=== PATIENT | male | born 1965 | race African-American/Black ===

== ENCOUNTER 2018-09-22 08:49 | Inpatient (IN) | payer OTHER ==
[2018-09-22 09:27] VITALS: BMI 42.0
--- NOTE | 2018-09-22 09:56 | HP ---
CIWA Score Nausea/Vomitin Muscle Tremors: 2 Anxiety: 2 Agitation: 1-Slight > Activity Paroxysmal Sweats: 2 Orientation: 0-Oriented Tacttile Disturbances: 2-Mild Itch/Numbness/Burn Auditory Disturbances: 0-None Visual Disturbances: 0-None Headache: 2-Mild CIWA-Ar Total Score: 13 - Admission Criteria OASAS Guidelines: Admission for Medically Managed Detox: Requires at least one of the followin. CIWA greater than 12 2. Seizures within the past 24 hours 3. Delirium tremens within the past 24 hours 4. Hallucinations within the past 24 hours 5. Acute intervention needed for co occurring medical disorder 6. Acute intervention needed for co occurring psychiatric disorder 7. Severe withdrawal that cannot be handled at a lower level of care (continued vomiting, continued diarrhea, abnormal vital signs) requiring intravenous medication and/or fluids 8. Admission ROS [facility] - [facility] Chief Complaint: Withdrawal symptoms Allergies/Adverse Reactions: Allergies Allergy/AdvReac Type Severity Reaction Status Date / Time No Known Allergies Allergy Verified 09/22/18 09:32 History of Present Illness: 53 y.o. man with an extensive history of alcohol dependence is here seeking detox. He reports he previously completed detox at [facility] one year ago. Longest period of abstinence has been 2 years. This is his first admission to [facility]. Exam Limitations: No Limitations - Ebola screening Have you traveled outside of the country in the last 21 days: No (N) Have you had contact with anyone from an Ebola affected area: No Have you been sick,other than usual withdrawal symptoms: No Do you have a fever: No - Review of Systems Constitutional: Changes in sleep EENT: reports: No Symptoms Reported Respiratory: reports: Shortness of Breath Cardiac: reports: No Symptoms Reported GI: reports: No Symptoms Reported : reports: No Symptoms Reported Musculoskeletal: reports: No Symptoms Reported Integumentary: reports: No Symptoms Reported Neuro: reports: Headache, Numbness, Tingling, Tremors Endocrine: reports: No Symptoms Reported Hematology: reports: No Symptoms Reported Psychiatric: reports: Orientated x3 Other Systems: Reviewed and Negative Patient History - Patient Medical History Hx Anemia: No Hx Asthma: Yes (ON MDI) Hx Chronic Obstructive Pulmonary Disease (COPD): No Hx Cancer: No Hx Cardiac Disorders: No Hx Congestive Heart Failure: No Hx Hypertension: Yes (ON MEDICATION) Hx Hypercholesterolemia: No Hx Pacemaker: No HX Cerebrovascular Accident: No Hx Seizures: No Hx Dementia: No Hx Diabetes: No Hx Gastrointestinal Disorders: No Hx Liver Disease: No Hx Genitourinary Disorders: No Hx Sexually Transmitted Disorders: No Hx Renal Disease (ESRD): No Hx Thyroid Disease: No Hx Human Immunodeficiency Virus (HIV): No Hx Hepatitis C: No Hx Depression: No Hx Suicide Attempt: No Hx Bipolar Disorder: No Hx Schizophrenia: No - Patient Surgical History Past Surgical History: No Hx Neurologic Surgery: No Hx Cataract Extraction: No Hx Cardiac Surgery: No Hx Lung Surgery: No Hx Breast Surgery: No Hx Breast Biopsy: No Hx Abdominal Surgery: No Hx Appendectomy: No Hx Cholecystectomy: No Hx Genitourinary Surgery: No Hx Section: No Hx Orthopedic Surgery: No Anesthesia Reaction: No - PPD History Previous Implant?: Yes Documented Results: Negative w/o proof Implanted On Prior R Admission?: No PPD to be Administered?: Yes - Reproductive History Patient is a Female of Child Bearing Age (11 -55 yrs old): No - Smoking Cessation Smoking history: Never smoked Hx Chewing Tobacco Use: No - Substance & Tx. History Hx Alcohol Use: Yes Hx Substance Use: No Substance Use Type: Alcohol Hx Substance Use Treatment: Yes (Detox: 1 year ago at [facility] ) - Substances Abused Alcohol Route: Oral Frequency: Daily Amount used: 2 PINTS OF VODKA Age of first use: 16 Date of Last Use: 09/21/18 Family Disease History - Family Disease History Family Disease History: Diabetes: Grandparent, CA: Mother (Br Ca- ) Admission Physical Exam [facility] - Vital Signs Vital Signs: Vital Signs - 24 hr 09/22/18 09:23 Temperature 96.1 F L Pulse Rate 60 Respiratory 18 Rate Blood Pressure 157/87 - Physical General Appearance: Yes: Obese, Anxious HEENTM: Yes: Hearing grossly Normal, Normal ENT Inspection, Normocephalic, Normal Voice Respiratory: Yes: Chest Non-Tender, No Accessory Muscle Use, Wheezing Neck: Yes: No masses,lesions,Nodules, Trachea in good position Breast: Yes: Breast Exam Deferred Cardiology: Yes: Regular Rhythm, Regular Rate Abdominal: Yes: Normal Bowel Sounds, Non Tender, Flat Genitourinary: Yes: Other (No complaints reported) Back: Yes: Normal Inspection Musculoskeletal: Yes: full range of Motion, Gait Steady, Pelvis Stable Extremities: Yes: Normal Capillary Refill, Normal Inspection, Normal Range of Motion, Non-Tender 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: 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: 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 intact, Fully Oriented, Alert, Normal Mood/ Affect, Normal Response Integumentary: Yes: Normal Color, Dry, Warm Lymphatic: Yes: Within Normal Limits - Diagnostic (1) Alcohol dependence with uncomplicated withdrawal Current Visit: Yes Status: Chronic (2) Hypertension Current Visit: Yes Status: Chronic (3) Asthma Current Visit: Yes Status: Chronic (4) Obese Current Visit: Yes Status: Chronic Qualifiers: Body mass index: BMI 40.0-44.9 Cleared for Admission [facility] - Detox or Rehab [facility] Level of Care: Medically Managed Detox Regimen/Protocol: Librium [facility] Breath Alcohol Content Breath Alcohol Content: 0 Urine Drug Screen - Results Drug Screen Negative: No Urine Drug Screen Results: BZO-Benzodiazepines
[2018-09-22] MEDS ORDERED: P-EPHED 60MG/TRIPROLIDI 2.5MG TABLET PO PRN (10:03)
[2018-09-22] MEDS ORDERED: ACETAMINOPHEN 325 MG TABLET (FP) PO PRN (10:03)
[2018-09-22] MEDS ORDERED: LOPERAMIDE HCL 2 MG CAPSULE PO PRN (10:03)
[2018-09-22] MEDS ORDERED: MAGNESIUM HYDROX 2400MG/30ML ORAL SUSPENSION 30 ML CUP PO PRN (10:03)
[2018-09-22] MEDS ORDERED: MENTHOL/PHENOL 1 EACH UD MM PRN (10:03)
[2018-09-22] MEDS ORDERED: MAGNESIUM CITRATE 300 ML BOTTLE PO PRN (10:03)
[2018-09-22] MEDS ORDERED: IBUPROFEN 400 MG TABLET (FP) PO PRN (10:03)
[2018-09-22] MEDS ORDERED: MAG HYDROX/AL HYDROX/SIMETH 30 ML UNIT-DOSE CUP PO PRN (10:03)
[2018-09-22] MEDS ORDERED: guaiFENesin/D-METHORPHAN HB 10 ML UNIT-DOSE CUPS PO PRN (10:03)
[2018-09-22] MEDS ORDERED: chlordiazePOXIDE HCL 25 MG CAPSULE PO PRN (10:03)
[2018-09-22] MEDS ORDERED: hydrOXYzine PAMOATE 50 MG CAPSULE (FP) PO PRN (10:03)
[2018-09-22] MEDS ORDERED: ALBUTEROL SO4 8 GM HFA INHALER IH PRN (10:06)
[2018-09-22] MEDS: HYDROCHLOROTHIAZIDE 25 MG TABLET (FP) PO SCH (11:33)
[2018-09-22] MEDS: amLODIPine BESYLATE 10 MG TABLET (FP) PO SCH (11:33)
--- NOTE | 2018-09-22 12:18 | EKG ---
Test Reason : Blood Pressure : / mmHG Vent. Rate : 061 BPM Atrial Rate : 061 BPM P-R Int : 174 ms QRS Dur : 082 ms QT Int : 400 ms P-R-T Axes : 047 -04 002 degrees QTc Int : 402 ms NORMAL SINUS RHYTHM NORMAL ECG NO PREVIOUS ECGS AVAILABLE Confirmed by DEANNA AMEZCUA MD ([id number]) on 09/22/2018 12:18:00 PM Referred By: Confirmed By:DEANNA AMEZCUA MD
[2018-09-22] MEDS: chlordiazePOXIDE HCL 25 MG CAPSULE PO SCH ×2 (17:23→22:07)
[2018-09-22] MEDS ORDERED: MELATONIN 5 MG TABLETS PO PRN (22:00)
[2018-09-22] MEDS: THIAMINE HCL 100 MG TABLET (FP) PO SCH (22:07)
[2018-09-23] MEDS: chlordiazePOXIDE HCL 25 MG CAPSULE PO SCH ×4 (05:10→22:06)
--- NOTE | 2018-09-23 09:52 | PN ---
S CIWA - CIWA Score Nausea/Vomitin-Mild Nausea/No Vomiting Muscle Tremors: 3 Anxiety: 2 Agitation: 3 Paroxysmal Sweats: 1-Minimal Palms Moist Orientation: 1-Uncertain about Date Tacttile Disturbances: 0-None Auditory Disturbances: 0-None Visual Disturbances: 0-None Headache: 1-Very Mild CIWA-Ar Total Score: 12 [facility] Progress Note (SOAP) Subjective: tremor sweating restlessness Objective: 09/23/18 09:53 Vital Signs Temperature 97.2 F L 09/23/18 09:14 Pulse Rate 68 09/23/18 09:14 Respiratory Rate 18 09/23/18 09:14 Blood Pressure 133/83 09/23/18 09:14 O2 Sat by Pulse Oximetry (%) 09/23/18 09:54 lab pending Assessment: 09/23/18 09:54 withdrawal sx Plan: continue detox
[2018-09-23] MEDS: HYDROCHLOROTHIAZIDE 25 MG TABLET (FP) PO SCH (10:03)
[2018-09-23] MEDS: amLODIPine BESYLATE 10 MG TABLET (FP) PO SCH (10:03)
[2018-09-23] MEDS: PRENATAL VITAMINS W/ FOLIC ACID TABLET (FP) PO SCH (10:04)
[2018-09-23 10:55] LABS: HEMATOCRIT 41.5 % (35.4-49); HEMOGLOBIN 14.3 GM/dL (11.7-16.9); MCH 34.1 pg (25.7-33.7); MCHC 34.5 g/dl (32.0-35.9); MEAN CELL VOLUME 98.9 fl (80-96); MEAN PLT VOLUME 9.1 fl (7.5-11.1); PLATELET COUNT 237 K/MM3 (134-434); RBC 4.19 M/mm3 (4.00-5.60); RDW 13.9 % (11.9-15.9); WHITE BLOOD COUNT 4.5 K/mm3 (4.0-10.0)
[2018-09-23 11:28] LABS: ALBUMIN 3.6 g/dl (3.4-5.0); ALK PHOS 64 U/L (45-117); ANION GAP 11 MMOL/L (8-16); BILIRUBIN,TOTAL 0.5 mg/dL (0.2-1); BLOOD UREA NITROGEN 14 mg/dL (7-18); CALCIUM 8.8 mg/dL (8.5-10.1); CHLORIDE 103 mmol/L (98-107); CO2 25 mmol/L (21-32); GLUCOSE,RANDOM 87 mg/dL (74-106); SGOT/AST 18 U/L (15-37); SGPT/ALT 32 U/L (13-61); SODIUM 139 mmol/L (136-145)
[2018-09-23] MEDS: THIAMINE HCL 100 MG TABLET (FP) PO SCH (22:06)
[2018-09-24] MEDS: chlordiazePOXIDE HCL 25 MG CAPSULE PO SCH ×2 (05:12→10:02)
[2018-09-24] MEDS: amLODIPine BESYLATE 10 MG TABLET (FP) PO SCH (10:02)
[2018-09-24] MEDS: HYDROCHLOROTHIAZIDE 25 MG TABLET (FP) PO SCH (10:02)
[2018-09-24] MEDS: PRENATAL VITAMINS W/ FOLIC ACID TABLET (FP) PO SCH (10:02)
--- NOTE | 2018-09-24 10:28 | PN ---
[facility] CIWA - CIWA Score Nausea/Vomitin-No Nausea/No Vomiting Muscle Tremors: 3 Anxiety: 2 Agitation: 1-Slight > Activity Paroxysmal Sweats: 1-Minimal Palms Moist Orientation: 1-Uncertain about Date Tacttile Disturbances: 0-None Auditory Disturbances: 0-None Visual Disturbances: 0-None Headache: 2-Mild CIWA-Ar Total Score: 10 S Progress Note (SOAP) Subjective: tremor sweating anxiety restlessness Objective: 09/24/18 10:27 Vital Signs Temperature 97.1 F L 09/24/18 08:53 Pulse Rate 73 09/24/18 08:53 Respiratory Rate 18 09/24/18 08:53 Blood Pressure 127/80 09/24/18 08:53 O2 Sat by Pulse Oximetry (%) Laboratory Last Values WBC 4.5 K/mm3 (4.0-10.0) 09/23/18 07:00 RBC 4.19 M/mm3 (4.00-5.60) 09/23/18 07:00 Hgb 14.3 GM/dL (11.7-16.9) 09/23/18 07:00 Hct 41.5 % (35.4-49) 09/23/18 07:00 MCV 98.9 fl (80-96) H 09/23/18 07:00 MCH 34.1 pg (25.7-33.7) H 09/23/18 07:00 MCHC 34.5 g/dl (32.0-35.9) 09/23/18 07:00 RDW 13.9 % (11.9-15.9) 09/23/18 07:00 Plt Count 237 K/MM3 (134-434) 09/23/18 07:00 MPV 9.1 fl (7.5-11.1) 09/23/18 07:00 Sodium 139 mmol/L (136-145) 09/23/18 07:00 Potassium 4.0 mmol/L (3.5-5.1) 09/23/18 07:00 Chloride 103 mmol/L (98-107) 09/23/18 07:00 Carbon Dioxide 25 mmol/L (21-32) 09/23/18 07:00 Anion Gap 11 MMOL/L (8-16) 09/23/18 07:00 BUN 14 mg/dL (7-18) 09/23/18 07:00 Creatinine 1.0 mg/dL (0.55-1.3) 09/23/18 07:00 Creat Clearance w eGFR > 60 (>60) 09/23/18 07:00 Random Glucose 87 mg/dL (74-106) 09/23/18 07:00 Calcium 8.8 mg/dL (8.5-10.1) 09/23/18 07:00 Total Bilirubin 0.5 mg/dL (0.2-1) 09/23/18 07:00 AST 18 U/L (15-37) 09/23/18 07:00 ALT 32 U/L (13-61) 09/23/18 07:00 Alkaline Phosphatase 64 U/L (45-117) 09/23/18 07:00 Total Protein 7.0 g/dl (6.4-8.2) 09/23/18 07:00 Albumin 3.6 g/dl (3.4-5.0) 09/23/18 07:00 RPR Titer Nonreactive (NONREACTIVE) 09/23/18 07:00 Hep C Ab Diagnostic 0.2 s/co ratio (0.0-0.9) 09/23/18 07:00 HIV 1&2 Antibody Screen Negative 09/23/18 07:00 HIV P24 Antigen Negative 09/23/18 07:00 lab noted Assessment: 09/24/18 10:28 withdrawal sx Plan: continue detox
[2018-09-24] MEDS: chlordiazePOXIDE 5 MG CAPSULE PO SCH ×2 (17:13→22:10)
[2018-09-24] MEDS: THIAMINE HCL 100 MG TABLET (FP) PO SCH (22:10)
[2018-09-25] MEDS: chlordiazePOXIDE 5 MG CAPSULE PO SCH ×2 (05:16→10:00)
--- NOTE | 2018-09-25 08:40 | PN ---
S Progress Note (SOAP) Subjective: feeling better less tremor mild sweating tolerated food and fluid well discuss aftercare with staff Objective: 09/25/18 08:39 Vital Signs Temperature 96.5 F L 09/25/18 06:08 Pulse Rate 64 09/25/18 06:08 Respiratory Rate 20 09/25/18 06:08 Blood Pressure 105/69 09/25/18 06:08 O2 Sat by Pulse Oximetry (%) Laboratory Last Values WBC 4.5 K/mm3 (4.0-10.0) 09/23/18 07:00 RBC 4.19 M/mm3 (4.00-5.60) 09/23/18 07:00 Hgb 14.3 GM/dL (11.7-16.9) 09/23/18 07:00 Hct 41.5 % (35.4-49) 09/23/18 07:00 MCV 98.9 fl (80-96) H 09/23/18 07:00 MCH 34.1 pg (25.7-33.7) H 09/23/18 07:00 MCHC 34.5 g/dl (32.0-35.9) 09/23/18 07:00 RDW 13.9 % (11.9-15.9) 09/23/18 07:00 Plt Count 237 K/MM3 (134-434) 09/23/18 07:00 MPV 9.1 fl (7.5-11.1) 09/23/18 07:00 Sodium 139 mmol/L (136-145) 09/23/18 07:00 Potassium 4.0 mmol/L (3.5-5.1) 09/23/18 07:00 Chloride 103 mmol/L (98-107) 09/23/18 07:00 Carbon Dioxide 25 mmol/L (21-32) 09/23/18 07:00 Anion Gap 11 MMOL/L (8-16) 09/23/18 07:00 BUN 14 mg/dL (7-18) 09/23/18 07:00 Creatinine 1.0 mg/dL (0.55-1.3) 09/23/18 07:00 Creat Clearance w eGFR > 60 (>60) 09/23/18 07:00 Random Glucose 87 mg/dL (74-106) 09/23/18 07:00 Calcium 8.8 mg/dL (8.5-10.1) 09/23/18 07:00 Total Bilirubin 0.5 mg/dL (0.2-1) 09/23/18 07:00 AST 18 U/L (15-37) 09/23/18 07:00 ALT 32 U/L (13-61) 09/23/18 07:00 Alkaline Phosphatase 64 U/L (45-117) 09/23/18 07:00 Total Protein 7.0 g/dl (6.4-8.2) 09/23/18 07:00 Albumin 3.6 g/dl (3.4-5.0) 09/23/18 07:00 RPR Titer Nonreactive (NONREACTIVE) 09/23/18 07:00 Hep C Ab Diagnostic 0.2 s/co ratio (0.0-0.9) 09/23/18 07:00 HIV 1&2 Antibody Screen Negative 09/23/18 07:00 HIV P24 Antigen Negative 09/23/18 07:00 lab noted Assessment: 09/25/18 08:39 mild withdrawal sx Plan: continue detox
--- NOTE | 2018-09-25 09:47 | DS ---
[facility] Detox Discharge Summary Admission Date: 09/22/18 Discharge Date: 09/25/18 - History Present History: Alcohol Dependence Pertinent Past History: 53 years old male admitted on 09/22/18 for alcohol withdrawal stabilization feeling better today preferred to begin chemical rehab today alert no acute distress denies suicidal ideation - Physical Exam Results Vital Signs: Vital Signs Temperature 97.0 F L 09/25/18 09:06 Pulse Rate 75 09/25/18 09:06 Respiratory Rate 18 09/25/18 09:06 Blood Pressure 126/82 09/25/18 09:06 O2 Sat by Pulse Oximetry (%) Pertinent Admission Physical Exam Findings: alcohol withdrawal sx Laboratory Last Values WBC 4.5 K/mm3 (4.0-10.0) 09/23/18 07:00 RBC 4.19 M/mm3 (4.00-5.60) 09/23/18 07:00 Hgb 14.3 GM/dL (11.7-16.9) 09/23/18 07:00 Hct 41.5 % (35.4-49) 09/23/18 07:00 MCV 98.9 fl (80-96) H 09/23/18 07:00 MCH 34.1 pg (25.7-33.7) H 09/23/18 07:00 MCHC 34.5 g/dl (32.0-35.9) 09/23/18 07:00 RDW 13.9 % (11.9-15.9) 09/23/18 07:00 Plt Count 237 K/MM3 (134-434) 09/23/18 07:00 MPV 9.1 fl (7.5-11.1) 09/23/18 07:00 Sodium 139 mmol/L (136-145) 09/23/18 07:00 Potassium 4.0 mmol/L (3.5-5.1) 09/23/18 07:00 Chloride 103 mmol/L (98-107) 09/23/18 07:00 Carbon Dioxide 25 mmol/L (21-32) 09/23/18 07:00 Anion Gap 11 MMOL/L (8-16) 09/23/18 07:00 BUN 14 mg/dL (7-18) 09/23/18 07:00 Creatinine 1.0 mg/dL (0.55-1.3) 09/23/18 07:00 Creat Clearance w eGFR > 60 (>60) 09/23/18 07:00 Random Glucose 87 mg/dL (74-106) 09/23/18 07:00 Calcium 8.8 mg/dL (8.5-10.1) 09/23/18 07:00 Total Bilirubin 0.5 mg/dL (0.2-1) 09/23/18 07:00 AST 18 U/L (15-37) 09/23/18 07:00 ALT 32 U/L (13-61) 09/23/18 07:00 Alkaline Phosphatase 64 U/L (45-117) 09/23/18 07:00 Total Protein 7.0 g/dl (6.4-8.2) 09/23/18 07:00 Albumin 3.6 g/dl (3.4-5.0) 09/23/18 07:00 RPR Titer Nonreactive (NONREACTIVE) 09/23/18 07:00 Hep C Ab Diagnostic 0.2 s/co ratio (0.0-0.9) 09/23/18 07:00 HIV 1&2 Antibody Screen Negative 09/23/18 07:00 HIV P24 Antigen Negative 09/23/18 07:00 lab noted - Treatment Hospital Course: Detox Protocol Followed, Detoxed Safely, Responded well, Discharged Condition Good, Rehab Referral Accepted Patient has Accepted a Rehab Referral to: [facility] - Medication Discharge Medications: Ambulatory Orders Albuterol Sulfate Inhaler - [Ventolin HFA Inhaler -] 1 - 2 inh PO Q4H PRN #1 inhaler 09/25/18 Amlodipine Besylate [Norvasc -] 10 mg PO DAILY #14 tablet 09/25/18 Hydrochlorothiazide 25 mg PO DAILY #14 tablet 09/25/18 - Diagnosis (1) Alcohol dependence with uncomplicated withdrawal Current Visit: Yes Status: Acute (2) Asthma Current Visit: Yes Status: Chronic Qualifiers: Asthma severity: mild Asthma persistence: intermittent Asthma complication type: with status asthmaticus Qualified Code(s): J45.22 - Mild intermittent asthma with status asthmaticus (3) Hypertension Current Visit: Yes Status: Chronic Qualifiers: Hypertension type: essential hypertension Qualified Code(s): I10 - Essential (primary) hypertension - AMA Did Patient Leave Against Medical Advice: No
[2018-09-25] MEDS: PRENATAL VITAMINS W/ FOLIC ACID TABLET (FP) PO SCH (10:00)
[2018-09-25] MEDS: HYDROCHLOROTHIAZIDE 25 MG TABLET (FP) PO SCH (10:00)
[2018-09-25] MEDS: amLODIPine BESYLATE 10 MG TABLET (FP) PO SCH (10:00)
[2018-09-25 13:51] VITALS: BP 121/78; PULSE 80; TEMP 98.4
[2018-09-25] MEDS ORDERED: chlordiazePOXIDE HCL 10 MG CAPSULE PO SCH (17:00)
== END 2018-09-25 11:44 | disposition other institution (70) | DRG 775 ==
LOC: YASAS 08:49 → Y3N 10:08
PROVIDERS: ADMIT Neuromusculoskeletal Medicine & OMM; ATTEND Neuromusculoskeletal Medicine & OMM
PROC: HZ2ZZZZ Detoxification Services for Substance Abuse Treatment (ICD-10-PCS; principal; 2018-09-22)
DX: F10.230 Alcohol dependence with withdrawal, uncomplicated (principal); I10 Essential (primary) hypertension; J45.22 Mild intermittent asthma with status asthmaticus; E66.9 Obesity, unspecified; Z68.41 Body mass index [BMI] 40.0-44.9, adult
CPT/HCPCS: 36415; 80053; 85027; 86593; 86803; 87389; 93005; 93010

== ENCOUNTER 2018-09-25 11:54 | Inpatient (IN) | payer OTHER ==
--- NOTE | 2018-09-25 09:51 | HP ---
[facility] Rehab Assess/Revision - Admission History Admitted to Rehab from: [facility] Date of Admission to Rehab: 09/25/18 - Findings Detox History & Physical reviewed: Yes Concur with findings: Yes Comments/Additional Findings: transferred from detox to rehab admission as per protocol Inpatient Rehab Admission - Initial Determination Are CD services needed?: Yes Free of communicable disease: Yes Not in need of hospitalization: Yes - Rehab Admission Criteria Previous failed treatment: Yes Poor recovery environment: Yes Comorbidities: Yes Lacks judgement: No Patient is meeting Inpatient Rehab admission criteria:: Yes
[~2018-09-25 11:54] MED LIST: ACETAMINOPHEN 325 MG TABLET (FP) PO PRN; HYDROCHLOROTHIAZIDE 25 MG TABLET (FP) PO SCH; IBUPROFEN 400 MG TABLET (FP) PO PRN; LOPERAMIDE HCL 2 MG CAPSULE PO PRN; MAG HYDROX/AL HYDROX/SIMETH 30 ML UNIT-DOSE CUP PO PRN; MAGNESIUM CITRATE 300 ML BOTTLE PO PRN; MAGNESIUM HYDROX 2400MG/30ML ORAL SUSPENSION 30 ML CUP PO PRN; MENTHOL/PHENOL 1 EACH UD MM PRN; NICOTINE 14 MG/24 HOURS TOPICAL PATCH TD PRN; NICOTINE POLACRILEX 2 MG GUM BUC PRN; P-EPHED 60MG/TRIPROLIDI 2.5MG TABLET PO PRN; guaiFENesin/D-METHORPHAN HB 10 ML UNIT-DOSE CUPS PO PRN
[2018-09-25] MEDS ORDERED: amLODIPine BESYLATE 10 MG TABLET (FP) PO SCH (12:15)
[2018-09-25 12:46] VITALS: BMI 42.0
[2018-09-25] MEDS: PRENATAL VITAMINS W/ FOLIC ACID TABLET (FP) PO SCH (13:24)
[2018-09-25] MEDS: THIAMINE HCL 100 MG TABLET (FP) PO SCH (21:30)
[2018-09-25] MEDS ORDERED: MELATONIN 5 MG TABLETS PO PRN (22:00)
[2018-09-26] MEDS: PRENATAL VITAMINS W/ FOLIC ACID TABLET (FP) PO SCH (09:54)
[2018-09-26] MEDS: amLODIPine BESYLATE 10 MG TABLET (FP) PO SCH (09:54)
[2018-09-26] MEDS: HYDROCHLOROTHIAZIDE 25 MG TABLET (FP) PO SCH (09:54)
[2018-09-26] MEDS ORDERED: NICOTINE 14 MG/24 HOURS TOPICAL PATCH TD PRN (10:00)
[2018-09-26] MEDS: THIAMINE HCL 100 MG TABLET (FP) PO SCH (22:03)
[2018-09-27] MEDS: PRENATAL VITAMINS W/ FOLIC ACID TABLET (FP) PO SCH (09:59)
[2018-09-27] MEDS: amLODIPine BESYLATE 10 MG TABLET (FP) PO SCH (09:59)
[2018-09-27] MEDS: HYDROCHLOROTHIAZIDE 25 MG TABLET (FP) PO SCH (10:00)
[2018-09-27] MEDS: ALBUTEROL SO4 8 GM HFA INHALER IH PRN (10:01)
[2018-09-27] MEDS: THIAMINE HCL 100 MG TABLET (FP) PO SCH (21:56)
[2018-09-28] MEDS: PRENATAL VITAMINS W/ FOLIC ACID TABLET (FP) PO SCH (10:17)
[2018-09-28] MEDS: HYDROCHLOROTHIAZIDE 25 MG TABLET (FP) PO SCH (10:17)
[2018-09-28] MEDS: amLODIPine BESYLATE 10 MG TABLET (FP) PO SCH (10:17)
[2018-09-28] MEDS: THIAMINE HCL 100 MG TABLET (FP) PO SCH (22:14)
[2018-09-29] MEDS: PRENATAL VITAMINS W/ FOLIC ACID TABLET (FP) PO SCH (10:43)
[2018-09-29] MEDS: amLODIPine BESYLATE 10 MG TABLET (FP) PO SCH (10:43)
[2018-09-29] MEDS: HYDROCHLOROTHIAZIDE 25 MG TABLET (FP) PO SCH (10:43)
[2018-09-29] MEDS: ALBUTEROL SO4 8 GM HFA INHALER IH PRN (10:44)
[2018-09-29] MEDS: THIAMINE HCL 100 MG TABLET (FP) PO SCH (22:08)
[2018-09-30] MEDS: HYDROCHLOROTHIAZIDE 25 MG TABLET (FP) PO SCH (10:07)
[2018-09-30] MEDS: PRENATAL VITAMINS W/ FOLIC ACID TABLET (FP) PO SCH (10:07)
[2018-09-30] MEDS: amLODIPine BESYLATE 10 MG TABLET (FP) PO SCH (10:07)
[2018-09-30] MEDS: ALBUTEROL SO4 8 GM HFA INHALER IH PRN (18:49)
[2018-09-30] MEDS: THIAMINE HCL 100 MG TABLET (FP) PO SCH (22:17)
[2018-10-01] MEDS: PRENATAL VITAMINS W/ FOLIC ACID TABLET (FP) PO SCH (10:49)
[2018-10-01] MEDS: amLODIPine BESYLATE 10 MG TABLET (FP) PO SCH (10:49)
[2018-10-01] MEDS: HYDROCHLOROTHIAZIDE 25 MG TABLET (FP) PO SCH (10:49)
[2018-10-01] MEDS: THIAMINE HCL 100 MG TABLET (FP) PO SCH (22:07)
[2018-10-02 07:01] VITALS: TEMP 97.6
[2018-10-02] MEDS: HYDROCHLOROTHIAZIDE 25 MG TABLET (FP) PO SCH (10:18)
[2018-10-02] MEDS: amLODIPine BESYLATE 10 MG TABLET (FP) PO SCH (10:18)
[2018-10-02] MEDS: PRENATAL VITAMINS W/ FOLIC ACID TABLET (FP) PO SCH (10:18)
[2018-10-02] MEDS: ALBUTEROL SO4 8 GM HFA INHALER IH PRN (10:19)
[2018-10-02] MEDS: THIAMINE HCL 100 MG TABLET (FP) PO SCH (22:04)
[2018-10-03] MEDS: amLODIPine BESYLATE 10 MG TABLET (FP) PO SCH (10:28)
[2018-10-03] MEDS: HYDROCHLOROTHIAZIDE 25 MG TABLET (FP) PO SCH (10:28)
[2018-10-03] MEDS: PRENATAL VITAMINS W/ FOLIC ACID TABLET (FP) PO SCH (10:28)
--- NOTE | 2018-10-03 11:31 | PN ---
[facility] Progress Note Note: PATIENT REQUESTED TO BE DISCHARGED FROM REHAB TODAY. PATIENT STATES HE HAS TO FOLLOW UP WITH VASCULAR DOCTOR TODAY AND CANNOT RESCHEDULE APPOINTMENT. PATIENT STATES HE FEELS FINE AND DENIES SI/HI. PATIENT IS MEDICALLY STABLE AT THIS TIME HOWEVER, HE WAS ENCOURAGED TO STAY IN REHAB FOR HIS SOBRIETY AND OFFERED ASSISTANCE IN RESCHEDULING APPOINTMENT. PATIENT REFUSED TO RESCHEDULE APPOINTMENT AND REQUESTED TO CONTINUE TO WITH D/C PROCESS. PATIENT TO FOLLOW UP WITH [facility] AND ENCOURAGED TO FOLLOW UP WITH PCP WITHIN ONE WEEK OF DISCHARGE TO CONTINUE MEDICAL TREATMENT. PATIENT STATES ALL REHAB GOALS WERE ACHIEVED. Vital Signs Temperature 97.6 F 10/03/18 06:49 Pulse Rate 68 10/03/18 06:49 Respiratory Rate 18 10/03/18 06:49 Blood Pressure 126/78 10/03/18 06:49 O2 Sat by Pulse Oximetry (%)
[2018-10-03 11:44] VITALS: BP 113/80; PULSE 84
== END 2018-10-03 12:00 | disposition home or self-care (01) | DRG 772 ==
LOC: YASAS 11:54 → Y3W 11:55
PROVIDERS: ADMIT Psychiatry & Neurology Psychiatry; ATTEND Psychiatry & Neurology Psychiatry
PROC: HZ42ZZZ Group Counseling for Substance Abuse Treatment, Cognitive-Behavioral (ICD-10-PCS; principal; 2018-09-25)
DX: F10.20 Alcohol dependence, uncomplicated (principal); I10 Essential (primary) hypertension; J45.909 Unspecified asthma, uncomplicated; E66.9 Obesity, unspecified; Z68.41 Body mass index [BMI] 40.0-44.9, adult

== ENCOUNTER 2019-07-21 16:32 | Inpatient (IN) | payer OTHER ==
[2019-07-21 20:22] VITALS: BMI 41.0
[2019-07-21] MEDS ORDERED: MELATONIN 5 MG TABLETS PO PRN (22:00)
--- NOTE | 2019-07-21 23:04 | HP ---
CIWA Score - Admission Criteria OASAS Guidelines: Admission for Medically Managed Detox: Requires at least one of the followin. CIWA greater than 12 2. Seizures within the past 24 hours 3. Delirium tremens within the past 24 hours 4. Hallucinations within the past 24 hours 5. Acute intervention needed for co occurring medical disorder 6. Acute intervention needed for co occurring psychiatric disorder 7. Severe withdrawal that cannot be handled at a lower level of care (continued vomiting, continued diarrhea, abnormal vital signs) requiring intravenous medication and/or fluids 8. Admitting History and Physical - Smoking History Smoking history: Never smoked Have you smoked in the past 12 months: No - Alcohol/Substance Use Hx Alcohol Use: Yes Admission ROS S - HPI Chief Complaint: Seeking admission to Rehab. for Alcohol dependence Allergies/Adverse Reactions: Allergies Allergy/AdvReac Type Severity Reaction Status Date / Time No Known Allergies Allergy Verified 07/21/19 20:17 History of Present Illness: 53 year old male with a long history of alcohol dependence is seeking admission to Rehab. Patient reports detox at [facility]. He has medical history of hypertension and asthma. He denies Suicidal ideation at this time Exam Limitations: No Limitations - Ebola screening Have you traveled outside of the country in the last 21 days: No (N) Have you had contact with anyone from an Ebola affected area: No Do you have a fever: No - Review of Systems Constitutional: No Symptoms Reported EENT: reports: No Symptoms Reported Respiratory: reports: No Symptoms reported Cardiac: reports: No Symptoms Reported GI: reports: No Symptoms Reported : reports: No Symptoms Reported Musculoskeletal: reports: No Symptoms Reported Integumentary: reports: No Symptoms Reported Neuro: reports: No Symptoms reported Endocrine: reports: No Symptoms Reported Psychiatric: reports: No Sypmtoms Reported, Mood/Affect Appropiate, Orientated x3 Other Systems: Reviewed and Negative Patient History - Patient Medical History Hx Anemia: No Hx Asthma: Yes Hx Chronic Obstructive Pulmonary Disease (COPD): No Hx Cancer: No Hx Cardiac Disorders: No Hx Congestive Heart Failure: No Hx Hypertension: Yes Hx Hypercholesterolemia: No Hx Pacemaker: No HX Cerebrovascular Accident: No Hx Seizures: No Hx Dementia: No Hx Diabetes: No Hx Gastrointestinal Disorders: No Hx Liver Disease: No Hx Genitourinary Disorders: No Hx Sexually Transmitted Disorders: No Hx Renal Disease (ESRD): No Hx Thyroid Disease: No Hx Human Immunodeficiency Virus (HIV): No Hx Hepatitis C: No Hx Depression: No Hx Suicide Attempt: No Hx Bipolar Disorder: No Hx Schizophrenia: No - Patient Surgical History Past Surgical History: No Hx Neurologic Surgery: No Hx Cataract Extraction: No Hx Cardiac Surgery: No Hx Lung Surgery: No Hx Abdominal Surgery: No Hx Appendectomy: No Hx Cholecystectomy: No Hx Genitourinary Surgery: No Hx Orthopedic Surgery: No Anesthesia Reaction: No - PPD History Previous Implant?: Yes Documented Results: Negative w/o proof Implanted On Prior [facility] Admission?: No Date: 09/24/18 PPD to be Administered?: No - Smoking Cessation Smoking history: Never smoked Have you smoked in the past 12 months: No Hx Chewing Tobacco Use: No Initiated information on smoking cessation: No - Substance & Tx. History Hx Alcohol Use: Yes Hx Substance Use: Yes Substance Use Type: Alcohol - Substances abused Alcohol Substance route: Oral Frequency: Daily Amount used: 2 pints of vodka Age of first use: 16 Date of last use: 07/17/19 Admission Physical Exam [facility] - Vital Signs Vital Signs: Vital Signs - 24 hr 07/21/19 20:19 Temperature 97.4 F L Pulse Rate 82 Respiratory 18 Rate Blood Pressure 152/80 - Physical General Appearance: Yes: Within Normal Limits HEENTM: Yes: Within Normal Limits Respiratory: Yes: Within Normal Limits, Lungs Clear, Normal Breath Sounds Neck: Yes: Within Normal Limits Breast: Yes: Breast Exam Deferred Cardiology: Yes: Within Normal Limits Abdominal: Yes: Within Normal Limits Genitourinary: Yes: Within Normal Limits Back: Yes: Within Normal Limits Musculoskeletal: Yes: Within Normal Limits Extremities: Yes: Within Normal Limits 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: Yes: Within Normal Limits, Motor Strength 5/5 Integumentary: Yes: Within Normal Limits Cleared for Admission [facility] - Detox or Rehab [facility] Level of Care: Observation Bed Claeared for Rehab Admission: Yes Breathalyzer - Breathalyzer Breathalyzer: 0 Urine Drug Screen - Test Device Lot number: [id number] Expiration date: 03/31/21 - Control Is test valid?: Yes - Results Drug screen NEGATIVE: No Urine drug screen results: BZO-Benzodiazepines Inpatient Rehab Admission - Rehab Decision to Admit Inpatient rehab admission?: Yes - Initial Determination Are CD services needed?: No Free of communicable disease: Yes Not in need of hospitalization: Yes - Rehab Admission Criteria Previous failed treatment: Yes Poor recovery environment: Yes Comorbidities: Yes Lacks judgement: No Patient is meeting Inpatient Rehab admission criteria:: Yes
[2019-07-21] MEDS ORDERED: P-EPHED 60MG/TRIPROLIDI 2.5MG TABLET PO PRN (23:16)
[2019-07-21] MEDS ORDERED: ACETAMINOPHEN 325 MG TABLET (FP) PO PRN (23:16)
[2019-07-21] MEDS ORDERED: IBUPROFEN 400 MG TABLET (FP) PO PRN (23:16)
[2019-07-21] MEDS ORDERED: MENTHOL/PHENOL 1 EACH UD MM PRN (23:16)
[2019-07-21] MEDS ORDERED: MAG HYDROX/AL HYDROX/SIMETH 30 ML UNIT-DOSE CUP PO PRN (23:16)
[2019-07-21] MEDS ORDERED: LOPERAMIDE HCL 2 MG CAPSULE PO PRN (23:16)
[2019-07-21] MEDS ORDERED: guaiFENesin 200 MG/10 ML 10 ML UNIT-DOSE CUPS PO PRN (23:16)
[2019-07-21] MEDS ORDERED: MAGNESIUM CITRATE 300 ML BOTTLE PO PRN (23:16)
[2019-07-21] MEDS ORDERED: MAGNESIUM HYDROX 2400MG/30ML ORAL SUSPENSION 30 ML CUP PO PRN (23:16)
[2019-07-22] MEDS: HYDROCHLOROTHIAZIDE 25 MG TABLET (FP) PO SCH (10:33)
[2019-07-22] MEDS: PRENATAL VITAMINS W/ FOLIC ACID TABLET (FP) PO SCH (10:33)
[2019-07-22] MEDS: amLODIPine BESYLATE 10 MG TABLET (FP) PO SCH (10:33)
[2019-07-22] MEDS: ALBUTEROL SO4 8 GM HFA INHALER IH PRN (10:34)
--- NOTE | 2019-07-22 11:05 | PN ---
[facility] Progress Note Note: Pt is a 53 y/o male with a hx of MASOOD admitted to rehab from [facility]. C/o dry itchy skin on neck and chest under the breast. Vital Signs - 24 hr 07/21/19 07/22/19 07/22/19: 00:30 03:30 Temperature 97.4 F L Pulse Rate 82 Respiratory 18 18 18 Rate Blood Pressure 152/80 07/22/19 07/22/19 06:38 10:00 Temperature 97.2 F L Pulse Rate 71 75 Respiratory 18 Rate Blood Pressure 143/83 144/85 Exam: Skin- neck with dry, velvety skin. Chest-deferred. A/P Eczema Hydrocortisone cream apply to affected areas as directed.
[2019-07-22 11:58] LABS: HEMATOCRIT 44.4 % (35.4-49); MCHC 33.8 g/dl (32.0-35.9); MEAN CELL VOLUME 97.5 fl (80-96); MEAN PLT VOLUME 9.4 fl (7.5-11.1); PLATELET COUNT 266 K/MM3 (134-434); RBC 4.55 M/mm3 (4.00-5.60); RDW 14.6 % (11.9-15.9); WHITE BLOOD COUNT 4.1 K/mm3 (4.0-10.0)
[2019-07-22 12:14] LABS: ALBUMIN 3.9 g/dl (3.4-5.0); BILIRUBIN,TOTAL 0.2 mg/dL (0.2-1); BLOOD UREA NITROGEN 22.2 mg/dL (7-18); CALCIUM 9.1 mg/dL (8.5-10.1); CREATININE 1.1 mg/dL (0.55-1.3); POTASSIUM 4.2 mmol/L (3.5-5.1); TOT PROT 7.5 g/dl (6.4-8.2)
[2019-07-22 14:45] LABS: URINE APPEARANCE CLOUDY; URINE BILIRUBIN NEGATIVE (NEGATIVE); URINE COLOR YELLOW; URINE GLUCOSE (UA) NEGATIVE (NEGATIVE); URINE KETONE NEGATIVE (NEGATIVE); URINE LEUK ESTERASE NEGATIVE (NEGATIVE); URINE NITRITE NEGATIVE (NEGATIVE); URINE PROTEIN NEGATIVE (NEGATIVE); URINE UROBILINOGEN 0.2 mg/dL (0.2-1.0)
[2019-07-22] MEDS: THIAMINE HCL 100 MG TABLET (FP) PO SCH (21:26)
[2019-07-23] MEDS: amLODIPine BESYLATE 10 MG TABLET (FP) PO SCH (10:38)
[2019-07-23] MEDS: PRENATAL VITAMINS W/ FOLIC ACID TABLET (FP) PO SCH (10:38)
[2019-07-23] MEDS: HYDROCHLOROTHIAZIDE 25 MG TABLET (FP) PO SCH (10:38)
[2019-07-23] MEDS: HYDROCORTISONE 1% TOPICAL CREAM 30 GM TUBE TP SCH ×2 (13:06→21:15)
[2019-07-23] MEDS: THIAMINE HCL 100 MG TABLET (FP) PO SCH (21:14)
[2019-07-24] MEDS: PRENATAL VITAMINS W/ FOLIC ACID TABLET (FP) PO SCH (10:22)
[2019-07-24] MEDS: HYDROCHLOROTHIAZIDE 25 MG TABLET (FP) PO SCH (10:22)
[2019-07-24] MEDS: amLODIPine BESYLATE 10 MG TABLET (FP) PO SCH (10:22)
[2019-07-24] MEDS: HYDROCORTISONE 1% TOPICAL CREAM 30 GM TUBE TP SCH ×2 (10:24→21:35)
[2019-07-24] MEDS: THIAMINE HCL 100 MG TABLET (FP) PO SCH (21:35)
[2019-07-25] MEDS: amLODIPine BESYLATE 10 MG TABLET (FP) PO SCH (09:51)
[2019-07-25] MEDS: PRENATAL VITAMINS W/ FOLIC ACID TABLET (FP) PO SCH (09:51)
[2019-07-25] MEDS: HYDROCHLOROTHIAZIDE 25 MG TABLET (FP) PO SCH (09:51)
[2019-07-25] MEDS: ALBUTEROL SO4 8 GM HFA INHALER IH PRN (09:52)
[2019-07-25] MEDS: HYDROCORTISONE 1% TOPICAL CREAM 30 GM TUBE TP SCH ×2 (09:53→21:10)
[2019-07-25] MEDS: THIAMINE HCL 100 MG TABLET (FP) PO SCH (21:10)
[2019-07-26] MEDS: HYDROCHLOROTHIAZIDE 25 MG TABLET (FP) PO SCH (10:28)
[2019-07-26] MEDS: HYDROCORTISONE 1% TOPICAL CREAM 30 GM TUBE TP SCH ×2 (10:28→21:18)
[2019-07-26] MEDS: amLODIPine BESYLATE 10 MG TABLET (FP) PO SCH (10:28)
[2019-07-26] MEDS: PRENATAL VITAMINS W/ FOLIC ACID TABLET (FP) PO SCH (10:28)
[2019-07-26] MEDS: THIAMINE HCL 100 MG TABLET (FP) PO SCH (21:18)
[2019-07-27] MEDS: HYDROCORTISONE 1% TOPICAL CREAM 30 GM TUBE TP SCH ×2 (10:49→21:59)
[2019-07-27] MEDS: PRENATAL VITAMINS W/ FOLIC ACID TABLET (FP) PO SCH (10:49)
[2019-07-27] MEDS: amLODIPine BESYLATE 10 MG TABLET (FP) PO SCH (10:49)
[2019-07-27] MEDS: HYDROCHLOROTHIAZIDE 25 MG TABLET (FP) PO SCH (10:49)
[2019-07-27] MEDS: THIAMINE HCL 100 MG TABLET (FP) PO SCH (21:59)
[2019-07-28] MEDS: amLODIPine BESYLATE 10 MG TABLET (FP) PO SCH (11:38)
[2019-07-28] MEDS: HYDROCHLOROTHIAZIDE 25 MG TABLET (FP) PO SCH (11:38)
[2019-07-28] MEDS: PRENATAL VITAMINS W/ FOLIC ACID TABLET (FP) PO SCH (11:38)
[2019-07-28] MEDS: HYDROCORTISONE 1% TOPICAL CREAM 30 GM TUBE TP SCH ×2 (11:39→22:07)
[2019-07-28] MEDS: ALBUTEROL SO4 8 GM HFA INHALER IH PRN (11:39)
[2019-07-28] MEDS: THIAMINE HCL 100 MG TABLET (FP) PO SCH (22:07)
[2019-07-29] MEDS: HYDROCORTISONE 1% TOPICAL CREAM 30 GM TUBE TP SCH ×2 (10:57→22:06)
[2019-07-29] MEDS: PRENATAL VITAMINS W/ FOLIC ACID TABLET (FP) PO SCH (10:57)
[2019-07-29] MEDS: amLODIPine BESYLATE 10 MG TABLET (FP) PO SCH (10:57)
[2019-07-29] MEDS: HYDROCHLOROTHIAZIDE 25 MG TABLET (FP) PO SCH (10:57)
[2019-07-29] MEDS: ALBUTEROL SO4 8 GM HFA INHALER IH PRN (10:59)
[2019-07-29] MEDS: THIAMINE HCL 100 MG TABLET (FP) PO SCH (22:06)
[2019-07-30] MEDS: HYDROCORTISONE 1% TOPICAL CREAM 30 GM TUBE TP SCH (10:04)
[2019-07-30] MEDS: HYDROCHLOROTHIAZIDE 25 MG TABLET (FP) PO SCH (10:04)
[2019-07-30] MEDS: amLODIPine BESYLATE 10 MG TABLET (FP) PO SCH (10:04)
[2019-07-30] MEDS: PRENATAL VITAMINS W/ FOLIC ACID TABLET (FP) PO SCH (10:04)
[2019-07-30] MEDS: THIAMINE HCL 100 MG TABLET (FP) PO SCH (21:49)
[2019-07-31] MEDS: PRENATAL VITAMINS W/ FOLIC ACID TABLET (FP) PO SCH (10:38)
[2019-07-31] MEDS: HYDROCHLOROTHIAZIDE 25 MG TABLET (FP) PO SCH (10:38)
[2019-07-31] MEDS: amLODIPine BESYLATE 10 MG TABLET (FP) PO SCH (10:38)
[2019-07-31] MEDS: ALBUTEROL SO4 8 GM HFA INHALER IH PRN (10:40)
[2019-07-31] MEDS: THIAMINE HCL 100 MG TABLET (FP) PO SCH (21:57)
[2019-08-01 07:07] VITALS: TEMP 97.9
[2019-08-01 09:13] VITALS: BP 124/70; PULSE 67
--- NOTE | 2019-08-01 09:43 | DS ---
[facility] Rehab Discharge Summary - [facility] Rehab Discharge Summary Admission Date: 07/21/19 Discharge Date: 08/01/19 - History Present History: Alcohol dependence Pertinent Past History: Chronic hypertension, obesity asthma and alcoholism - Discharge Physical Exam Vital Signs: Vital Signs Temperature 97.9 F 08/01/19 07:06 Pulse Rate 67 08/01/19 09:13 Respiratory Rate 18 08/01/19 07:06 Blood Pressure 124/70 08/01/19 09:13 O2 Sat by Pulse Oximetry (%) Pertinent Admission Physical Exam Findings: Laboratory Last Values WBC 4.1 K/mm3 (4.0-10.0) 07/22/19 08:10 RBC 4.55 M/mm3 (4.00-5.60) 07/22/19 08:10 Hgb 15.0 GM/dL (11.7-16.9) 07/22/19 08:10 Hct 44.4 % (35.4-49) 07/22/19 08:10 MCV 97.5 fl (80-96) H 07/22/19 08:10 MCH 33.0 pg (25.7-33.7) 07/22/19 08:10 MCHC 33.8 g/dl (32.0-35.9) 07/22/19 08:10 RDW 14.6 % (11.9-15.9) 07/22/19 08:10 Plt Count 266 K/MM3 (134-434) 07/22/19 08:10 MPV 9.4 fl (7.5-11.1) 07/22/19 08:10 Sodium 137 mmol/L (136-145) 07/22/19 08:10 Potassium 4.2 mmol/L (3.5-5.1) 07/22/19 08:10 Chloride 103 mmol/L (98-107) 07/22/19 08:10 Carbon Dioxide 24 mmol/L (21-32) 07/22/19 08:10 Anion Gap 10 MMOL/L (8-16) 07/22/19 08:10 BUN 22.2 mg/dL (7-18) H 07/22/19 08:10 Creatinine 1.1 mg/dL (0.55-1.3) 07/22/19 08:10 Est GFR (CKD-EPI)AfAm 87.74 07/22/19 08:10 Est GFR (CKD-EPI)NonAf 75.70 07/22/19 08:10 POC Glucometer 101 UNITS (80-120) 07/26/19 06:47 Random Glucose 149 mg/dL (74-106) H 07/22/19 08:10 Calcium 9.1 mg/dL (8.5-10.1) 07/22/19 08:10 Total Bilirubin 0.2 mg/dL (0.2-1) 07/22/19 08:10 AST 27 U/L (15-37) 07/22/19 08:10 ALT 47 U/L (13-61) 07/22/19 08:10 Alkaline Phosphatase 66 U/L (45-117) 07/22/19 08:10 Total Protein 7.5 g/dl (6.4-8.2) 07/22/19 08:10 Albumin 3.9 g/dl (3.4-5.0) 07/22/19 08:10 Urine Color Yellow 07/21/19 10:30 Urine Appearance Cloudy 07/21/19 10:30 Urine pH 5.0 (5.0-8.0) 07/21/19 10:30 Ur Specific Burns 1.026 (1.010-1.035) 07/21/19 10:30 Urine Protein Negative (NEGATIVE) 07/21/19 10:30 Urine Glucose (UA) Negative (NEGATIVE) 07/21/19 10:30 Urine Ketones Negative (NEGATIVE) 07/21/19 10:30 Urine Blood Negative (NEGATIVE) 07/21/19 10:30 Urine Nitrite Negative (NEGATIVE) 07/21/19 10:30 Urine Bilirubin Negative (NEGATIVE) 07/21/19 10:30 Urine Urobilinogen 0.2 mg/dL (0.2-1.0) 07/21/19 10:30 Ur Leukocyte Esterase Negative (NEGATIVE) 07/21/19 10:30 RPR Titer Nonreactive (NONREACTIVE) 07/22/19 08:10 Labs noted - Treatment Discharge Condition: Discharge condition good Hospital Course: Admitted to [facility] outpatient program - Medication Discharge Medications: Ambulatory Orders Albuterol Sulfate Inhaler - [Ventolin HFA Inhaler -] 1 - 2 inh PO Q4H PRN #1 inhaler 09/25/18 Amlodipine Besylate [Norvasc -] 10 mg PO DAILY #14 tablet 09/25/18 Hydrochlorothiazide 25 mg PO DAILY #14 tablet 09/25/18 - Medication-Assisted Treatment (MAT) Medication-Assisted Treatment (MAT): No - Discharge Instructions Diet, activity, other medical instructions: Diet: No added salt Activity: No restrictions Other medical instructions:Medication adherence - Diagnosis (1) Alcohol dependence with uncomplicated withdrawal Current Visit: No Status: Chronic (2) Asthma Current Visit: No Status: Chronic Qualifiers: Asthma severity: mild Asthma persistence: intermittent Asthma complication type: with status asthmaticus Qualified Code(s): J45.22 - Mild intermittent asthma with status asthmaticus (3) Hypertension Current Visit: No Status: Chronic Qualifiers: Hypertension type: essential hypertension Qualified Code(s): I10 - Essential (primary) hypertension (4) Obese Current Visit: No Status: Chronic Qualifiers: Body mass index: BMI 40.0-44.9 - Follow-up Referral Minutes to complete discharge: 30 (Admitted to [facility]) - AMA Did Patient Leave Against Medical Advice: No Additional Comments: Patient requested discharge today instead of 08/03 following 11 days in rehab.
[2019-08-01] MEDS: PRENATAL VITAMINS W/ FOLIC ACID TABLET (FP) PO SCH (10:13)
[2019-08-01] MEDS: HYDROCHLOROTHIAZIDE 25 MG TABLET (FP) PO SCH (10:13)
[2019-08-01] MEDS: amLODIPine BESYLATE 10 MG TABLET (FP) PO SCH (10:13)
[2019-08-01] MEDS: ALBUTEROL SO4 8 GM HFA INHALER IH PRN (10:14)
== END 2019-08-01 10:30 | disposition home or self-care (01) | DRG 199 ==
LOC: YASAS 16:32 → Y5N 23:10
PROVIDERS: ADMIT Neuromusculoskeletal Medicine & OMM; ATTEND Neuromusculoskeletal Medicine & OMM
PROC: HZ42ZZZ Group Counseling for Substance Abuse Treatment, Cognitive-Behavioral (ICD-10-PCS; principal; 2019-07-21)
DX: I10 Essential (primary) hypertension (principal); J45.909 Unspecified asthma, uncomplicated; L30.9 Dermatitis, unspecified; E66.01 Morbid (severe) obesity due to excess calories; Z68.41 Body mass index [BMI] 40.0-44.9, adult
CPT/HCPCS: 36415; 80053; 81003; 82962; 85027; 86593

== ENCOUNTER 2020-04-21 13:03 | Inpatient (IN) | payer OTHER ==
--- NOTE | 2020-04-21 12:53 | BHS.RME ---
Substance Use & Tx History - Substance Use History Alcohol Substance amount: 2pints vodka + beers Frequency of use: Daily Substance route: Oral Date of Last Use: 04/20/20 (5am) - Last Treatment Date of last treatment: 2018 Treatment type: Substance Use Disorder (MASOOD) Where was last treatment: Detox Physical/Psych/Mental Status - Behavior General Behavior: Increased activity (restlessness, agitation) Eye Contact: Normal - Cooperativeness Cooperativeness: Cooperative - Thinking Thought Processes: Tight, Logical, Goal Directed Thought content: Future oriented - Physical Health Problems Is patient presently having any pain?: No Does patient presently have any injuries (include location): No Does patient currently have a fever: No Is patient : No CIWA Nausea/Vomitin Muscle Tremors: 3 Anxiety: 3 Agitation: 3 Paroxysmal Sweats: No Perspiration Orientation: 0-Oriented Tacttile Disturbances: 2-Mild Itch/Numbness/Burn Auditory Disturbances: 0-None Visual Disturbances: 0-None Headache: 0-None Present CIWA-Ar Total Score: 14
--- NOTE | 2020-04-21 13:32 | HP ---
CIWA Score Nausea/Vomitin Muscle Tremors: 3 Anxiety: 3 Agitation: 3 Paroxysmal Sweats: No Perspiration Orientation: 0-Oriented Tacttile Disturbances: 2-Mild Itch/Numbness/Burn Auditory Disturbances: 0-None Visual Disturbances: 0-None Headache: 0-None Present CIWA-Ar Total Score: 14 - Admission Criteria OASAS Guidelines: Admission for Medically Managed Detox: Requires at least one of the followin. CIWA greater than 12 2. Seizures within the past 24 hours 3. Delirium tremens within the past 24 hours 4. Hallucinations within the past 24 hours 5. Acute intervention needed for co occurring medical disorder 6. Acute intervention needed for co occurring psychiatric disorder 7. Severe withdrawal that cannot be handled at a lower level of care (continued vomiting, continued diarrhea, abnormal vital signs) requiring intravenous medication and/or fluids 8. Admitting History and Physical - Admission Chief Complaint: " i want to do it right this time. I have to stop drinking." History of Present Illness: 54 year old male with history of alcohol dependence with withdrawal seeking detox. He was here in 2019 and completed rehab but then relapsed the following year. 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 PIO=0 CIWA=14 He meets criteria for detox as he is at high risk of relapse. His consumption of alcohol has actually increased and he has multiple medical co-morbidities History Source: Patient Limitations to Obtaining History: No Limitations - Past Medical History Cardiovascular: Yes: HTN Pulmonary: Yes: Asthma - Past Surgical History Past Surgical History: Yes: None - Smoking History Smoking history: Never smoked Have you smoked in the past 12 months: No - Alcohol/Substance Use Hx Alcohol Use: Yes - Social History Usual Living Arrangement: Yes: Other Do you think of yourself as: Straight/Heterosexual ADL: Independent Occupation: [employer] History of Recent Travel: No Admission ROS S - HPI Allergies/Adverse Reactions: Allergies Allergy/AdvReac Type Severity Reaction Status Date / Time No Known Allergies Allergy Verified 07/21/19 20:17 Exam Limitations: No Limitations - Ebola screening Have you traveled outside of the country in the last 21 days: No Have you had contact with anyone from an Ebola affected area: No Have you been sick,other than usual withdrawal symptoms: No Do you have a fever: No - Review of Systems Constitutional: Chills, Diaphoresis EENT: reports: No Symptoms Reported Respiratory: reports: No Symptoms reported Cardiac: reports: No Symptoms Reported GI: reports: No Symptoms Reported : reports: No Symptoms Reported Musculoskeletal: reports: No Symptoms Reported Integumentary: reports: No Symptoms Reported Neuro: reports: No Symptoms reported Endocrine: reports: No Symptoms Reported Hematology: reports: No Symptoms Reported Psychiatric: reports: Judgement Intact, Mood/Affect Appropiate, Orientated x3, Agitated, Anxious Other Systems: Reviewed and Negative Patient History - Patient Medical History Hx Anemia: No Hx Asthma: Yes Hx Chronic Obstructive Pulmonary Disease (COPD): No Hx Cancer: No Hx Cardiac Disorders: No Hx Congestive Heart Failure: No Hx Hypertension: Yes Hx Hypercholesterolemia: No Hx Pacemaker: No HX Cerebrovascular Accident: No Hx Seizures: No Hx Dementia: No Hx Diabetes: No Hx Gastrointestinal Disorders: No Hx Liver Disease: No Hx Genitourinary Disorders: No Hx Sexually Transmitted Disorders: No Hx Renal Disease (ESRD): No Hx Thyroid Disease: No Hx Human Immunodeficiency Virus (HIV): No Hx Hepatitis C: No Hx Depression: No Hx Suicide Attempt: No Hx Bipolar Disorder: No Hx Schizophrenia: No - Patient Surgical History Past Surgical History: No Hx Neurologic Surgery: No Hx Cataract Extraction: No Hx Cardiac Surgery: No Hx Lung Surgery: No Hx Breast Surgery: No Hx Breast Biopsy: No Hx Abdominal Surgery: No Hx Appendectomy: No Hx Cholecystectomy: No Hx Genitourinary Surgery: No Hx Section: No Hx Orthopedic Surgery: No Anesthesia Reaction: No - PPD History Date: 09/24/18 - Smoking Cessation Smoking history: Never smoked Have you smoked in the past 12 months: No Hx Chewing Tobacco Use: No Admission Physical Exam S - Physical General Appearance: Yes: Irritable, Sweating, Anxious HEENTM: Yes: EOMI, Hearing grossly Normal, Normal ENT Inspection, Normocephalic, Normal Voice, TA[place], Pharynx Normal, Tm's normal Respiratory: Yes: Chest Non-Tender, Lungs Clear, Normal Breath Sounds, No Respiratory Distress, No Accessory Muscle Use Neck: Yes: No masses,lesions,Nodules, Supple, Trachea in good position Breast: Yes: Within Normal Limits Cardiology: Yes: Regular Rhythm, Regular Rate, S1, S2 Abdominal: Yes: Normal Bowel Sounds, Non Tender, Soft, Protuberent Genitourinary: Yes: Within Normal Limits Back: Yes: Normal Inspection Musculoskeletal: Yes: full range of Motion, Gait Steady, Pelvis Stable Extremities: Yes: Normal Capillary Refill, Normal Inspection, Normal Range of Motion, Non-Tender 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: Yes: 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 intact, Fully Oriented, Alert, Motor Strength 5/5, Normal Mood/Affect, Normal Response Integumentary: Yes: Normal Color, Dry, Warm Lymphatic: Yes: Within Normal Limits - Diagnostic (1) Alcohol dependence with uncomplicated withdrawal Current Visit: Yes Status: Chronic (2) Asthma Current Visit: Yes Status: Chronic Qualifiers: Asthma severity: mild Asthma persistence: intermittent Asthma complication type: with status asthmaticus Qualified Code(s): J45.22 - Mild intermittent asthma with status asthmaticus (3) Hypertension Current Visit: Yes Status: Chronic Qualifiers: Hypertension type: essential hypertension Qualified Code(s): I10 - Essential (primary) hypertension (4) Obese Current Visit: Yes Status: Chronic Qualifiers: Body mass index: BMI 40.0-44.9 Cleared for Admission [facility] - Detox or Rehab [facility] Level of Care: Medically Managed Detox Regimen/Protocol: Librium Claeared for Rehab Admission: No Screened but not Admitted - Documentation of Visit Screened but not Admitted: No Breathalyzer - Breathalyzer Breathalyzer: 0 Vital Signs - Vital Signs Vital signs refused: No Temperature: 97.4 F Temperature source: Oral Pulse Rate: 61 Respiratory Rate: 18 Blood Pressure: 178/91 BP Location: Left Arm Blood Pressure position: Sitting - Height Height: 5 ft 7 in - Weight Weight: 268 lb Weight measurement method: Standing scale - BMI Body Mass Index (BMI): 42.0 - Bowel Function Bowel Movement: No Urine Drug Screen - Test Device Lot number: [id number] Expiration date: 03/31/21 - Control Is test valid?: Yes - Results Drug screen NEGATIVE: No Urine drug screen results: BZO-Benzodiazepines Inpatient Rehab Admission - Rehab Decision to Admit Inpatient rehab admission?: No
[2020-04-21 13:39] VITALS: BMI 42.0
[2020-04-21] MEDS ORDERED: BISMUTH SUBSALICYLATE 524 MG/30 ML UD PO PRN (13:39)
[2020-04-21] MEDS ORDERED: METHOCARBAMOL 500 MG TABLET PO PRN (13:39)
[2020-04-21] MEDS ORDERED: ACETAMINOPHEN 325 MG TABLET (FP) PO PRN ×2 (13:39)
[2020-04-21] MEDS ORDERED: MAGNESIUM HYDROX 2400MG/30ML ORAL SUSPENSION 30 ML CUP PO PRN (13:39)
[2020-04-21] MEDS ORDERED: MENTHOL/PHENOL 1 EACH UD MM PRN (13:39)
[2020-04-21] MEDS ORDERED: NICOTINE POLACRILEX 2 MG GUM BUC PRN (13:39)
[2020-04-21] MEDS ORDERED: MAGNESIUM CITRATE 300 ML BOTTLE PO PRN (13:39)
[2020-04-21] MEDS ORDERED: chlordiazePOXIDE HCL 25 MG CAPSULE PO PRN (13:39)
[2020-04-21] MEDS ORDERED: IBUPROFEN 400 MG TABLET (FP) PO PRN (13:39)
[2020-04-21] MEDS ORDERED: MAG HYDROX/AL HYDROX/SIMETH 30 ML UNIT-DOSE CUP PO PRN (13:39)
[2020-04-21] MEDS ORDERED: ALBUTEROL SO4 HFA INHALER IH PRN (13:41)
[2020-04-21] MEDS ORDERED: hydrOXYzine PAMOATE 25 MG CAPSULE (FP) PO SCH (14:00)
[2020-04-21] MEDS ORDERED: ONDANSETRON *ODT* 4 MG TABLET SL ONE (14:30)
[2020-04-21] MEDS: PRENATAL VITAMINS W/ FOLIC ACID TABLET (FP) PO SCH (14:59)
[2020-04-21] MEDS: NICOTINE 7 MG/24 HOURS TOPICAL PATCH TD SCH (14:59)
[2020-04-21] MEDS ORDERED: hydrOXYzine PAMOATE 25 MG CAPSULE (FP) PO PRN (15:13)
[2020-04-21] MEDS ORDERED: HYDROCHLOROTHIAZIDE 25 MG TABLET (FP) PO ONE (16:00)
[2020-04-21] MEDS ORDERED: amLODIPine BESYLATE 10 MG TABLET (FP) PO ONE (16:00)
[2020-04-21 16:59] LABS: HEMATOCRIT 41.8 % (35.4-49); HEMOGLOBIN 14.3 GM/dL (11.7-16.9); MCH 33.3 pg (25.7-33.7); MCHC 34.1 g/dl (32.0-35.9); MEAN CELL VOLUME 97.4 fl (80-96); MEAN PLT VOLUME 9.5 fl (7.5-11.1); PLATELET COUNT 240 K/MM3 (134-434); RBC 4.29 M/mm3 (4.00-5.60); RDW 13.8 % (11.9-15.9); WHITE BLOOD COUNT 5.7 K/mm3 (4.0-10.0)
[2020-04-21 17:12] LABS: ALBUMIN 3.9 g/dl (3.4-5.0); BILIRUBIN,TOTAL 0.3 mg/dL (0.2-1); BLOOD UREA NITROGEN 17.1 mg/dL (7-18); CALCIUM 8.9 mg/dL (8.5-10.1); CREATININE 1.2 mg/dL (0.55-1.3); POTASSIUM 4.1 mmol/L (3.5-5.1); TOT PROT 7.4 g/dl (6.4-8.2)
[2020-04-21] MEDS: chlordiazePOXIDE HCL 25 MG CAPSULE PO SCH ×2 (17:47→22:12)
[2020-04-21] MEDS: THIAMINE HCL 100 MG TABLET (FP) PO SCH (22:12)
[2020-04-21] MEDS: MELATONIN 5 MG TABLETS PO SCH (22:53)
[2020-04-22] MEDS: chlordiazePOXIDE HCL 25 MG CAPSULE PO SCH ×4 (05:27→22:16)
[2020-04-22] MEDS: PRENATAL VITAMINS W/ FOLIC ACID TABLET (FP) PO SCH (10:23)
[2020-04-22] MEDS: HYDROCHLOROTHIAZIDE 25 MG TABLET (FP) PO SCH (10:23)
[2020-04-22] MEDS: amLODIPine BESYLATE 10 MG TABLET (FP) PO SCH (10:23)
[2020-04-22] MEDS: NICOTINE 7 MG/24 HOURS TOPICAL PATCH TD SCH (10:24)
--- NOTE | 2020-04-22 14:00 | PN ---
[facility] CIWA - CIWA Score Nausea/Vomitin-Mild Nausea/No Vomiting Muscle Tremors: 2 Anxiety: 2 Agitation: 2 Paroxysmal Sweats: No Perspiration Orientation: 0-Oriented Tacttile Disturbances: 1-Very Mild Itch/Numbness Auditory Disturbances: 1-Very Mild Visual Disturbances: 0-None Headache: 2-Mild CIWA-Ar Total Score: 11 S Progress Note (SOAP) Subjective: alert,irritable,anxious,interrupted sleep,tremor,aching pain in the biody and back Objective: 04/22/20 15:26 Vital Signs Temperature 97.3 F L 04/22/20 12:45 Pulse Rate 62 04/22/20 12:45 Respiratory Rate 18 04/22/20 12:45 Blood Pressure 140/81 04/22/20 12:45 O2 Sat by Pulse Oximetry (%) 99 04/22/20 12:45 04/22/20 15:27 Laboratory Last Values WBC 5.7 K/mm3 (4.0-10.0) 04/21/20 13:45 RBC 4.29 M/mm3 (4.00-5.60) 04/21/20 13:45 Hgb 14.3 GM/dL (11.7-16.9) 04/21/20 13:45 Hct 41.8 % (35.4-49) 04/21/20 13:45 MCV 97.4 fl (80-96) H 04/21/20 13:45 MCH 33.3 pg (25.7-33.7) 04/21/20 13:45 MCHC 34.1 g/dl (32.0-35.9) 04/21/20 13:45 RDW 13.8 % (11.9-15.9) 04/21/20 13:45 Plt Count 240 K/MM3 (134-434) 04/21/20 13:45 MPV 9.5 fl (7.5-11.1) 04/21/20 13:45 Sodium 139 mmol/L (136-145) 04/21/20 13:45 Potassium 4.1 mmol/L (3.5-5.1) 04/21/20 13:45 Chloride 105 mmol/L (98-107) 04/21/20 13:45 Carbon Dioxide 27 mmol/L (21-32) 04/21/20 13:45 Anion Gap 8 MMOL/L (8-16) 04/21/20 13:45 BUN 17.1 mg/dL (7-18) 04/21/20 13:45 Creatinine 1.2 mg/dL (0.55-1.3) 04/21/20 13:45 Est GFR (CKD-EPI)AfAm 78.43 04/21/20 13:45 Est GFR (CKD-EPI)NonAf 67.67 04/21/20 13:45 Random Glucose 106 mg/dL (74-106) 04/21/20 13:45 Calcium 8.9 mg/dL (8.5-10.1) 04/21/20 13:45 Total Bilirubin 0.3 mg/dL (0.2-1) 04/21/20 13:45 AST 17 U/L (15-37) 04/21/20 13:45 ALT 32 U/L (13-61) 04/21/20 13:45 Alkaline Phosphatase 71 U/L (45-117) 04/21/20 13:45 Total Protein 7.4 g/dl (6.4-8.2) 04/21/20 13:45 Albumin 3.9 g/dl (3.4-5.0) 04/21/20 13:45 Syphilis Serology Non-reactive (NONREACTIVE) 04/21/20 13:45 COVID-19 (JOEY) Not detected (Not Detected) 04/21/20 13:45 Assessment: 04/22/20 15:27 withdrawal symptom Plan: continue detox librium regimen
[2020-04-22] MEDS: THIAMINE HCL 100 MG TABLET (FP) PO SCH (22:16)
[2020-04-22] MEDS: MELATONIN 5 MG TABLETS PO SCH (22:16)
[2020-04-22] MEDS: ALBUTEROL SO4 HFA INHALER IH PRN (22:18)
[2020-04-23] MEDS: chlordiazePOXIDE HCL 25 MG CAPSULE PO SCH ×4 (05:56→22:09)
--- NOTE | 2020-04-23 10:14 | PN ---
[facility] CIWA - CIWA Score Nausea/Vomitin-No Nausea/No Vomiting Muscle Tremors: 2 Anxiety: 2 Agitation: 1-Slight > Activity Paroxysmal Sweats: 2 Orientation: 0-Oriented Tacttile Disturbances: 0-None Auditory Disturbances: 2-Mild Harshness/Frighten Visual Disturbances: 1-Very Mild Sensitivity Headache: 0-None Present CIWA-Ar Total Score: 10 BHS Progress Note (SOAP) Subjective: Complaints of sweats, tremors, shakes, anxiety, light and noise sensitivity. Objective: 04/23/20 10:13 Vital Signs 04/23/20 05:48 Temperature 97.3 F L Pulse Rate 63 Respiratory 20 Rate Blood Pressure 135/77 O2 Sat by Pulse 97 Oximetry (%) Laboratory Last Values WBC 5.7 K/mm3 (4.0-10.0) 04/21/20 13:45 RBC 4.29 M/mm3 (4.00-5.60) 04/21/20 13:45 Hgb 14.3 GM/dL (11.7-16.9) 04/21/20 13:45 Hct 41.8 % (35.4-49) 04/21/20 13:45 MCV 97.4 fl (80-96) H 04/21/20 13:45 MCH 33.3 pg (25.7-33.7) 04/21/20 13:45 MCHC 34.1 g/dl (32.0-35.9) 04/21/20 13:45 RDW 13.8 % (11.9-15.9) 04/21/20 13:45 Plt Count 240 K/MM3 (134-434) 04/21/20 13:45 MPV 9.5 fl (7.5-11.1) 04/21/20 13:45 Sodium 139 mmol/L (136-145) 04/21/20 13:45 Potassium 4.1 mmol/L (3.5-5.1) 04/21/20 13:45 Chloride 105 mmol/L (98-107) 04/21/20 13:45 Carbon Dioxide 27 mmol/L (21-32) 04/21/20 13:45 Anion Gap 8 MMOL/L (8-16) 04/21/20 13:45 BUN 17.1 mg/dL (7-18) 04/21/20 13:45 Creatinine 1.2 mg/dL (0.55-1.3) 04/21/20 13:45 Est GFR (CKD-EPI)AfAm 78.43 04/21/20 13:45 Est GFR (CKD-EPI)NonAf 67.67 04/21/20 13:45 Random Glucose 106 mg/dL (74-106) 04/21/20 13:45 Calcium 8.9 mg/dL (8.5-10.1) 04/21/20 13:45 Total Bilirubin 0.3 mg/dL (0.2-1) 04/21/20 13:45 AST 17 U/L (15-37) 04/21/20 13:45 ALT 32 U/L (13-61) 04/21/20 13:45 Alkaline Phosphatase 71 U/L (45-117) 04/21/20 13:45 Total Protein 7.4 g/dl (6.4-8.2) 04/21/20 13:45 Albumin 3.9 g/dl (3.4-5.0) 04/21/20 13:45 Syphilis Serology Non-reactive (NONREACTIVE) 04/21/20 13:45 COVID-19 (JOEY) Not detected (Not Detected) 04/21/20 13:45 Labs notes Assessment: 04/23/20 10:13 Alert and oriented x 3, in no acute respiratory distress. Full ROM, ambulating in the unit without assistance. Withdrawal symptoms. Plan: Continue detox protocol.
[2020-04-23] MEDS: NICOTINE 7 MG/24 HOURS TOPICAL PATCH TD SCH (10:23)
[2020-04-23] MEDS: HYDROCHLOROTHIAZIDE 25 MG TABLET (FP) PO SCH (10:23)
[2020-04-23] MEDS: amLODIPine BESYLATE 10 MG TABLET (FP) PO SCH (10:23)
[2020-04-23] MEDS: PRENATAL VITAMINS W/ FOLIC ACID TABLET (FP) PO SCH (10:24)
[2020-04-23] MEDS: THIAMINE HCL 100 MG TABLET (FP) PO SCH (22:09)
[2020-04-23] MEDS: MELATONIN 5 MG TABLETS PO SCH (23:00)
[2020-04-24] MEDS ORDERED: chlordiazePOXIDE HCL 10 MG CAPSULE PO PRN
[2020-04-24] MEDS: chlordiazePOXIDE HCL 10 MG CAPSULE PO SCH ×4 (05:18→22:12)
[2020-04-24] MEDS: ALBUTEROL SO4 HFA INHALER IH PRN (05:18)
[2020-04-24] MEDS: NICOTINE 7 MG/24 HOURS TOPICAL PATCH TD SCH (10:27)
[2020-04-24] MEDS: HYDROCHLOROTHIAZIDE 25 MG TABLET (FP) PO SCH (10:27)
[2020-04-24] MEDS: PRENATAL VITAMINS W/ FOLIC ACID TABLET (FP) PO SCH (10:27)
[2020-04-24] MEDS: amLODIPine BESYLATE 10 MG TABLET (FP) PO SCH (10:27)
--- NOTE | 2020-04-24 13:22 | PN ---
[facility] CIWA - CIWA Score Nausea/Vomitin-No Nausea/No Vomiting Muscle Tremors: 2 Anxiety: 2 Agitation: 2 Paroxysmal Sweats: 2 Orientation: 0-Oriented Tacttile Disturbances: 0-None Auditory Disturbances: 0-None Visual Disturbances: 0-None Headache: 0-None Present CIWA-Ar Total Score: 8 S Progress Note (SOAP) Subjective: Complaints of sweats, shakes, chills and anxiety. Objective: 04/24/20 13:21 Vital Signs 04/24/20 09:08 Temperature 97.7 F Pulse Rate 61 Respiratory 18 Rate Blood Pressure 151/86 Laboratory Last Values WBC 5.7 K/mm3 (4.0-10.0) 04/21/20 13:45 RBC 4.29 M/mm3 (4.00-5.60) 04/21/20 13:45 Hgb 14.3 GM/dL (11.7-16.9) 04/21/20 13:45 Hct 41.8 % (35.4-49) 04/21/20 13:45 MCV 97.4 fl (80-96) H 04/21/20 13:45 MCH 33.3 pg (25.7-33.7) 04/21/20 13:45 MCHC 34.1 g/dl (32.0-35.9) 04/21/20 13:45 RDW 13.8 % (11.9-15.9) 04/21/20 13:45 Plt Count 240 K/MM3 (134-434) 04/21/20 13:45 MPV 9.5 fl (7.5-11.1) 04/21/20 13:45 Sodium 139 mmol/L (136-145) 04/21/20 13:45 Potassium 4.1 mmol/L (3.5-5.1) 04/21/20 13:45 Chloride 105 mmol/L (98-107) 04/21/20 13:45 Carbon Dioxide 27 mmol/L (21-32) 04/21/20 13:45 Anion Gap 8 MMOL/L (8-16) 04/21/20 13:45 BUN 17.1 mg/dL (7-18) 04/21/20 13:45 Creatinine 1.2 mg/dL (0.55-1.3) 04/21/20 13:45 Est GFR (CKD-EPI)AfAm 78.43 04/21/20 13:45 Est GFR (CKD-EPI)NonAf 67.67 04/21/20 13:45 Random Glucose 106 mg/dL (74-106) 04/21/20 13:45 Calcium 8.9 mg/dL (8.5-10.1) 04/21/20 13:45 Total Bilirubin 0.3 mg/dL (0.2-1) 04/21/20 13:45 AST 17 U/L (15-37) 04/21/20 13:45 ALT 32 U/L (13-61) 04/21/20 13:45 Alkaline Phosphatase 71 U/L (45-117) 04/21/20 13:45 Total Protein 7.4 g/dl (6.4-8.2) 04/21/20 13:45 Albumin 3.9 g/dl (3.4-5.0) 04/21/20 13:45 Syphilis Serology Non-reactive (NONREACTIVE) 04/21/20 13:45 COVID-19 (JOEY) Not detected (Not Detected) 04/21/20 13:45 Labs noted. Assessment: 04/24/20 13:22 Patient was seen and examined at bedside. Alert and oriented x 3, in no acute respiratory distress. Full ROM, ambulatory without assistance. Withdrawal symptoms. Plan: Continue detox protocol.
[2020-04-24] MEDS: THIAMINE HCL 100 MG TABLET (FP) PO SCH (22:12)
[2020-04-24] MEDS: MELATONIN 5 MG TABLETS PO SCH (22:12)
[2020-04-25] MEDS: chlordiazePOXIDE HCL 10 MG CAPSULE PO SCH ×2 (05:25→17:27)
[2020-04-25] MEDS: amLODIPine BESYLATE 10 MG TABLET (FP) PO SCH (10:17)
[2020-04-25] MEDS: HYDROCHLOROTHIAZIDE 25 MG TABLET (FP) PO SCH (10:17)
[2020-04-25] MEDS: PRENATAL VITAMINS W/ FOLIC ACID TABLET (FP) PO SCH (10:18)
[2020-04-25] MEDS: NICOTINE 7 MG/24 HOURS TOPICAL PATCH TD SCH (10:18)
--- NOTE | 2020-04-25 10:30 | PN ---
[facility] CIWA - CIWA Score Nausea/Vomitin-No Nausea/No Vomiting Muscle Tremors: 2 Anxiety: 2 Agitation: 2 Paroxysmal Sweats: No Perspiration Orientation: 0-Oriented Tacttile Disturbances: 0-None Auditory Disturbances: 0-None Visual Disturbances: 0-None Headache: 1-Very Mild CIWA-Ar Total Score: 7 S Progress Note (SOAP) Subjective: alert,irritable,anxious,interrupted sleep,aching pain in the body and back Objective: 04/25/20 10:29 Vital Signs Temperature 97.5 F L 04/25/20 08:28 Pulse Rate 66 04/25/20 08:28 Respiratory Rate 19 04/25/20 08:28 Blood Pressure 120/78 04/25/20 08:28 O2 Sat by Pulse Oximetry (%) 96 04/25/20 05:18 Laboratory Last Values WBC 5.7 K/mm3 (4.0-10.0) 04/21/20 13:45 RBC 4.29 M/mm3 (4.00-5.60) 04/21/20 13:45 Hgb 14.3 GM/dL (11.7-16.9) 04/21/20 13:45 Hct 41.8 % (35.4-49) 04/21/20 13:45 MCV 97.4 fl (80-96) H 04/21/20 13:45 MCH 33.3 pg (25.7-33.7) 04/21/20 13:45 MCHC 34.1 g/dl (32.0-35.9) 04/21/20 13:45 RDW 13.8 % (11.9-15.9) 04/21/20 13:45 Plt Count 240 K/MM3 (134-434) 04/21/20 13:45 MPV 9.5 fl (7.5-11.1) 04/21/20 13:45 Sodium 139 mmol/L (136-145) 04/21/20 13:45 Potassium 4.1 mmol/L (3.5-5.1) 04/21/20 13:45 Chloride 105 mmol/L (98-107) 04/21/20 13:45 Carbon Dioxide 27 mmol/L (21-32) 04/21/20 13:45 Anion Gap 8 MMOL/L (8-16) 04/21/20 13:45 BUN 17.1 mg/dL (7-18) 04/21/20 13:45 Creatinine 1.2 mg/dL (0.55-1.3) 04/21/20 13:45 Est GFR (CKD-EPI)AfAm 78.43 04/21/20 13:45 Est GFR (CKD-EPI)NonAf 67.67 04/21/20 13:45 Random Glucose 106 mg/dL (74-106) 04/21/20 13:45 Calcium 8.9 mg/dL (8.5-10.1) 04/21/20 13:45 Total Bilirubin 0.3 mg/dL (0.2-1) 04/21/20 13:45 AST 17 U/L (15-37) 04/21/20 13:45 ALT 32 U/L (13-61) 04/21/20 13:45 Alkaline Phosphatase 71 U/L (45-117) 04/21/20 13:45 Total Protein 7.4 g/dl (6.4-8.2) 04/21/20 13:45 Albumin 3.9 g/dl (3.4-5.0) 04/21/20 13:45 Syphilis Serology Non-reactive (NONREACTIVE) 04/21/20 13:45 COVID-19 (JOEY) Not detected (Not Detected) 04/21/20 13:45 Assessment: 04/25/20 10:30 withdrawal symptom Plan: continue detox librium regimen,discharge in am
[2020-04-25] MEDS: THIAMINE HCL 100 MG TABLET (FP) PO SCH (21:24)
[2020-04-25] MEDS: MELATONIN 5 MG TABLETS PO SCH (23:09)
[2020-04-26] MEDS ORDERED: chlordiazePOXIDE HCL 10 MG CAPSULE PO ONE (05:00)
[2020-04-26 08:16] VITALS: TEMP 96.9
[2020-04-26 11:15] VITALS: BP 130/72; PULSE 67
[2020-04-26] MEDS: HYDROCHLOROTHIAZIDE 25 MG TABLET (FP) PO SCH (11:18)
[2020-04-26] MEDS: amLODIPine BESYLATE 10 MG TABLET (FP) PO SCH (11:18)
[2020-04-26] MEDS: PRENATAL VITAMINS W/ FOLIC ACID TABLET (FP) PO SCH (11:19)
[2020-04-26] MEDS: NICOTINE 7 MG/24 HOURS TOPICAL PATCH TD SCH (11:19)
--- NOTE | 2020-04-26 11:28 | PN ---
[facility] CIWA - CIWA Score Nausea/Vomitin-No Nausea/No Vomiting Muscle Tremors: None Anxiety: 1-Mildly Anxious Agitation: 0-Normal Activity Paroxysmal Sweats: No Perspiration Orientation: 0-Oriented Tacttile Disturbances: 0-None Auditory Disturbances: 0-None Visual Disturbances: 0-None Headache: 0-None Present CIWA-Ar Total Score: 1 S Progress Note (SOAP) Subjective: alert,no complaint Objective: 04/26/20 11:26 Vital Signs Temperature 96.9 F L 04/26/20 05:16 Pulse Rate 67 04/26/20 11:05 Respiratory Rate 19 04/26/20 05:16 Blood Pressure 130/72 04/26/20 11:05 O2 Sat by Pulse Oximetry (%) 96 04/26/20 05:16 Assessment: 04/26/20 11:26 detox completed,no withdrawal symptom Plan: stable for discharge today,follow up with after care program as arrangement rehab
--- NOTE | 2020-04-26 11:33 | DS ---
[facility] Detox Discharge Summary Admission Date: 04/21/20 Discharge Date: 04/26/20 - History Present History: Alcohol Dependence Additional Comments: alert,oriented x 3 ambulation on the unit lung clear on auscultation on the unit abdomen soft,no distension,no pain,no tenderness stable for discharge follow up with after care [facility] as arrangement total time of discharge 35 minutes Pertinent Past History: asthma hypertension - Physical Exam Results Vital Signs: Vital Signs Temperature 96.9 F L 04/26/20 05:16 Pulse Rate 67 04/26/20 11:05 Respiratory Rate 19 04/26/20 05:16 Blood Pressure 130/72 04/26/20 11:05 O2 Sat by Pulse Oximetry (%) 96 04/26/20 05:16 Pertinent Admission Physical Exam Findings: withdrawal signs and symptom Laboratory Last Values WBC 5.7 K/mm3 (4.0-10.0) 04/21/20 13:45 RBC 4.29 M/mm3 (4.00-5.60) 04/21/20 13:45 Hgb 14.3 GM/dL (11.7-16.9) 04/21/20 13:45 Hct 41.8 % (35.4-49) 04/21/20 13:45 MCV 97.4 fl (80-96) H 04/21/20 13:45 MCH 33.3 pg (25.7-33.7) 04/21/20 13:45 MCHC 34.1 g/dl (32.0-35.9) 04/21/20 13:45 RDW 13.8 % (11.9-15.9) 04/21/20 13:45 Plt Count 240 K/MM3 (134-434) 04/21/20 13:45 MPV 9.5 fl (7.5-11.1) 04/21/20 13:45 Sodium 139 mmol/L (136-145) 04/21/20 13:45 Potassium 4.1 mmol/L (3.5-5.1) 04/21/20 13:45 Chloride 105 mmol/L (98-107) 04/21/20 13:45 Carbon Dioxide 27 mmol/L (21-32) 04/21/20 13:45 Anion Gap 8 MMOL/L (8-16) 04/21/20 13:45 BUN 17.1 mg/dL (7-18) 04/21/20 13:45 Creatinine 1.2 mg/dL (0.55-1.3) 04/21/20 13:45 Est GFR (CKD-EPI)AfAm 78.43 04/21/20 13:45 Est GFR (CKD-EPI)NonAf 67.67 04/21/20 13:45 Random Glucose 106 mg/dL (74-106) 04/21/20 13:45 Calcium 8.9 mg/dL (8.5-10.1) 04/21/20 13:45 Total Bilirubin 0.3 mg/dL (0.2-1) 04/21/20 13:45 AST 17 U/L (15-37) 04/21/20 13:45 ALT 32 U/L (13-61) 04/21/20 13:45 Alkaline Phosphatase 71 U/L (45-117) 04/21/20 13:45 Total Protein 7.4 g/dl (6.4-8.2) 04/21/20 13:45 Albumin 3.9 g/dl (3.4-5.0) 04/21/20 13:45 Syphilis Serology Non-reactive (NONREACTIVE) 04/21/20 13:45 COVID-19 (JOEY) Not detected (Not Detected) 04/21/20 13:45 Vital Signs Temperature 96.9 F L 04/26/20 05:16 Pulse Rate 67 04/26/20 11:05 Respiratory Rate 19 04/26/20 05:16 Blood Pressure 130/72 04/26/20 11:05 O2 Sat by Pulse Oximetry (%) 96 04/26/20 05:16 - Treatment Hospital Course: Detox Protocol Followed, Detoxed Safely, Responded well, Discharged Condition Good, Rehab Referral Accepted Patient has Accepted a [facility] Referral to[facility] - Medication Discharge Medications: Ambulatory Orders Amlodipine Besylate [Norvasc -] 10 mg PO DAILY #14 tablet 09/25/18 Hydrochlorothiazide 25 mg PO DAILY #14 tablet 09/25/18 Albuterol Sulfate Inhaler - [Ventolin Hfa Inhaler -] 2 inh PO Q4H PRN 04/21/20 - Diagnosis (1) Alcohol dependence with uncomplicated withdrawal Current Visit: Yes Status: Chronic (2) Asthma Current Visit: Yes Status: Chronic Qualifiers: Asthma severity: mild Asthma persistence: intermittent Asthma complication type: with status asthmaticus Qualified Code(s): J45.22 - Mild intermittent asthma with status asthmaticus (3) Hypertension Current Visit: Yes Status: Chronic Qualifiers: Hypertension type: essential hypertension Qualified Code(s): I10 - Essential (primary) hypertension - AMA Did Patient Leave Against Medical Advice: No
== END 2020-04-26 11:35 | disposition other institution (70) | DRG 775 ==
LOC: YASAS 13:03 → Y6N 14:02
PROVIDERS: ADMIT Allergy & Immunology; ATTEND Allergy & Immunology
PROC: HZ2ZZZZ Detoxification Services for Substance Abuse Treatment (ICD-10-PCS; principal; 2020-04-21)
DX: F10.230 Alcohol dependence with withdrawal, uncomplicated (principal); I10 Essential (primary) hypertension; J45.20 Mild intermittent asthma, uncomplicated; R60.0 Localized edema; E66.01 Morbid (severe) obesity due to excess calories; Z68.41 Body mass index [BMI] 40.0-44.9, adult
CPT/HCPCS: 36415; 80053; 85027; 86780; U0003

== ENCOUNTER 2020-04-26 11:59 | Inpatient (IN) | payer OTHER ==
[2020-04-26] MEDS ORDERED: LOPERAMIDE HCL 2 MG CAPSULE PO PRN (15:13)
[2020-04-26] MEDS ORDERED: MAGNESIUM CITRATE 300 ML BOTTLE PO PRN (15:13)
[2020-04-26] MEDS ORDERED: MENTHOL/PHENOL 1 EACH UD MM PRN (15:13)
[2020-04-26] MEDS ORDERED: P-EPHED 60MG/TRIPROLIDI 2.5MG TABLET PO PRN (15:13)
[2020-04-26] MEDS ORDERED: IBUPROFEN 400 MG TABLET (FP) PO PRN (15:13)
[2020-04-26] MEDS ORDERED: MAGNESIUM HYDROX 2400MG/30ML ORAL SUSPENSION 30 ML CUP PO PRN (15:13)
[2020-04-26] MEDS ORDERED: NICOTINE POLACRILEX 2 MG GUM BUC PRN (15:13)
[2020-04-26] MEDS ORDERED: hydrOXYzine PAMOATE 25 MG CAPSULE (FP) PO PRN (15:13)
[2020-04-26] MEDS ORDERED: ACETAMINOPHEN 325 MG TABLET (FP) PO PRN (15:13)
[2020-04-26] MEDS ORDERED: guaiFENesin 200 MG/10 ML 10 ML UNIT-DOSE CUPS PO PRN (15:13)
[2020-04-26] MEDS ORDERED: MAG HYDROX/AL HYDROX/SIMETH 30 ML UNIT-DOSE CUP PO PRN (15:13)
--- NOTE | 2020-04-26 15:13 | HP ---
[facility] Rehab Assess/Revision - Admission History Admitted to Rehab from: [address] Date of Admission to Rehab: 04/26/20 - Vital signs Vital Signs: Vital Signs Period Temp Pulse Resp BP Sys/[place] Pulse Ox Last 24 Hr 98 F 64 20 96 - Findings Detox History & Physical reviewed: Yes Concur with findings: Yes Comments/Additional Findings: Pt is a 54 y/o male admitted to rehab today from [address] [place] [address] detox after completing alcohol detox. Pt reports he has primary care with [place]. PMHx:Asthma. HTN. Obesity. Alert o x 3. nad. oob ambulating with steady gait. Extremities:no edema,dry scaly feet; skin intact. A:Tinea Pedis. P:Tinactin cream apply as directed. Inpatient Rehab Admission - Rehab Decision to Admit Inpatient rehab admission?: Yes - Initial Determination Are CD services needed?: Yes Free of communicable disease: Yes Not in need of hospitalization: Yes - Rehab Admission Criteria Previous failed treatment: Yes Poor recovery environment: Yes Comorbidities: Yes Lacks judgement: Yes Patient is meeting Inpatient Rehab admission criteria:: Yes
[2020-04-26] MEDS: MELATONIN 5 MG TABLETS PO SCH (21:35)
[2020-04-26] MEDS: THIAMINE HCL 100 MG TABLET (FP) PO SCH (21:35)
[2020-04-26] MEDS: TOLNAFTATE 1% CREAM 15 GM TUBE TP SCH (21:35)
[2020-04-27] MEDS: TOLNAFTATE 1% CREAM 15 GM TUBE TP SCH ×2 (09:32→21:44)
[2020-04-27] MEDS: HYDROCHLOROTHIAZIDE 25 MG TABLET (FP) PO SCH (09:32)
[2020-04-27] MEDS: amLODIPine BESYLATE 10 MG TABLET (FP) PO SCH (09:32)
[2020-04-27] MEDS: PRENATAL VITAMINS W/ FOLIC ACID TABLET (FP) PO SCH (09:32)
[2020-04-27] MEDS ORDERED: NICOTINE 7 MG/24 HOURS TOPICAL PATCH TD SCH (10:00)
[2020-04-27] MEDS: THIAMINE HCL 100 MG TABLET (FP) PO SCH (21:44)
[2020-04-27] MEDS: MELATONIN 5 MG TABLETS PO SCH (21:44)
[2020-04-28] MEDS: PRENATAL VITAMINS W/ FOLIC ACID TABLET (FP) PO SCH (09:23)
[2020-04-28] MEDS: TOLNAFTATE 1% CREAM 15 GM TUBE TP SCH ×2 (09:23→21:27)
[2020-04-28] MEDS: amLODIPine BESYLATE 10 MG TABLET (FP) PO SCH (09:23)
[2020-04-28] MEDS: HYDROCHLOROTHIAZIDE 25 MG TABLET (FP) PO SCH (09:25)
[2020-04-28] MEDS: ALBUTEROL SO4 HFA INHALER IH PRN (09:26)
[2020-04-28] MEDS: MELATONIN 5 MG TABLETS PO SCH (21:27)
[2020-04-28] MEDS: THIAMINE HCL 100 MG TABLET (FP) PO SCH (21:27)
[2020-04-29] MEDS: HYDROCHLOROTHIAZIDE 25 MG TABLET (FP) PO SCH (09:22)
[2020-04-29] MEDS: PRENATAL VITAMINS W/ FOLIC ACID TABLET (FP) PO SCH (09:22)
[2020-04-29] MEDS: TOLNAFTATE 1% CREAM 15 GM TUBE TP SCH ×2 (09:22→21:51)
[2020-04-29] MEDS: amLODIPine BESYLATE 10 MG TABLET (FP) PO SCH (09:22)
[2020-04-29] MEDS: ALBUTEROL SO4 HFA INHALER IH PRN (09:23)
[2020-04-29] MEDS: MELATONIN 5 MG TABLETS PO SCH (21:51)
[2020-04-29] MEDS: THIAMINE HCL 100 MG TABLET (FP) PO SCH (21:51)
[2020-04-30] MEDS: ALBUTEROL SO4 HFA INHALER IH PRN (10:09)
[2020-04-30] MEDS: amLODIPine BESYLATE 10 MG TABLET (FP) PO SCH (10:10)
[2020-04-30] MEDS: HYDROCHLOROTHIAZIDE 25 MG TABLET (FP) PO SCH (10:10)
[2020-04-30] MEDS: TOLNAFTATE 1% CREAM 15 GM TUBE TP SCH ×2 (10:10→21:58)
[2020-04-30] MEDS: PRENATAL VITAMINS W/ FOLIC ACID TABLET (FP) PO SCH (10:10)
[2020-04-30] MEDS ORDERED: MASKS NR ONE (16:16)
[2020-04-30] MEDS: THIAMINE HCL 100 MG TABLET (FP) PO SCH (21:58)
[2020-04-30] MEDS: MELATONIN 5 MG TABLETS PO SCH (21:58)
[2020-05-01] MEDS: HYDROCHLOROTHIAZIDE 25 MG TABLET (FP) PO SCH (10:08)
[2020-05-01] MEDS: PRENATAL VITAMINS W/ FOLIC ACID TABLET (FP) PO SCH (10:09)
[2020-05-01] MEDS: TOLNAFTATE 1% CREAM 15 GM TUBE TP SCH ×2 (10:09→22:00)
[2020-05-01] MEDS: amLODIPine BESYLATE 10 MG TABLET (FP) PO SCH (10:09)
[2020-05-01] MEDS: MELATONIN 5 MG TABLETS PO SCH (22:00)
[2020-05-01] MEDS: THIAMINE HCL 100 MG TABLET (FP) PO SCH (22:01)
[2020-05-02] MEDS: PRENATAL VITAMINS W/ FOLIC ACID TABLET (FP) PO SCH (10:27)
[2020-05-02] MEDS: amLODIPine BESYLATE 10 MG TABLET (FP) PO SCH (10:27)
[2020-05-02] MEDS: HYDROCHLOROTHIAZIDE 25 MG TABLET (FP) PO SCH (10:27)
[2020-05-02] MEDS: TOLNAFTATE 1% CREAM 15 GM TUBE TP SCH ×2 (10:28→23:30)
[2020-05-02] MEDS: ALBUTEROL SO4 HFA INHALER IH PRN (10:28)
[2020-05-02] MEDS: MELATONIN 5 MG TABLETS PO SCH (23:30)
[2020-05-02] MEDS: THIAMINE HCL 100 MG TABLET (FP) PO SCH (23:30)
[2020-05-03] MEDS: ALBUTEROL SO4 HFA INHALER IH PRN (10:57)
[2020-05-03] MEDS: amLODIPine BESYLATE 10 MG TABLET (FP) PO SCH (10:57)
[2020-05-03] MEDS: PRENATAL VITAMINS W/ FOLIC ACID TABLET (FP) PO SCH (10:57)
[2020-05-03] MEDS: HYDROCHLOROTHIAZIDE 25 MG TABLET (FP) PO SCH (10:57)
[2020-05-03] MEDS: TOLNAFTATE 1% CREAM 15 GM TUBE TP SCH ×2 (10:58→21:40)
[2020-05-03] MEDS: MELATONIN 5 MG TABLETS PO SCH (21:40)
[2020-05-03] MEDS: THIAMINE HCL 100 MG TABLET (FP) PO SCH (21:40)
[2020-05-04 06:57] VITALS: TEMP 97.8
--- NOTE | 2020-05-04 08:50 | DS ---
[facility] Rehab Discharge Summary - [facility] Rehab Discharge Summary Admission Date: 04/26/20 Discharge Date: 05/04/20 - History Present History: Alcohol dependence Pertinent Past History: Asthma HTN - Discharge Physical Exam Vital Signs: Vital Signs Temperature 97.8 F 05/04/20 06:14 Pulse Rate 64 05/04/20 06:14 Respiratory Rate 18 05/04/20 06:14 Blood Pressure 132/85 05/04/20 06:14 O2 Sat by Pulse Oximetry (%) 96 05/04/20 06:14 General:WDWN male; MentaL:Alert o x 3 Cardiac:s1 s2, rrr Lungs:ctab,no resp difficulty, pulse ox; 96% MSK:oob ambulating with steady gait; no pedal edema. Skin:intact Pertinent Admission Physical Exam Findings: s/p detox - Treatment Discharge Condition: Discharge condition good, Rehabilitated safely, Responded well, Outpatient referral accepted Hospital Course: Pt is a 54 y/o male who was referred to rehab from [address] and completed rehab today. Pt met with counselor Ms Candie Meeks and has been referred back to his program [facility] . Pt reports he has primary care with [facility] and is going there today after discharge. pt reports he has own medications and ges his refills from [facility] pharmacy and does not need [facility] Rx today sent. - Medication Discharge Medications: Ambulatory Orders Amlodipine Besylate [Norvasc -] 10 mg PO DAILY #14 tablet 09/25/18 Hydrochlorothiazide 25 mg PO DAILY #14 tablet 09/25/18 Albuterol Sulfate Inhaler - [Ventolin HFA Inhaler -] 2 inh PO Q4H PRN 04/21/20 - Medication-Assisted Treatment (MAT) Medication-Assisted Treatment (MAT): No - Discharge Instructions Diet, activity, other medical instructions: Diet:SARAH Activity: oob ad jaziel Other medical instructions:follow up with PCP at [facility] today as plan trisha. Follow up with CD aftercare at [facility] as scheduled. - Diagnosis (1) Alcohol use disorder Current Visit: Yes Status: Chronic (2) Asthma Current Visit: Yes Status: Chronic Qualifiers: Asthma severity: mild Asthma persistence: intermittent Asthma complication type: with status asthmaticus Qualified Code(s): J45.22 - Mild intermittent asthma with status asthmaticus (3) Hypertension Current Visit: Yes Status: Chronic Qualifiers: Hypertension type: essential hypertension Qualified Code(s): I10 - Essential (primary) hypertension (4) Obese Current Visit: Yes Status: Chronic Qualifiers: Body mass index: BMI 40.0-44.9 - Follow-up Referral Minutes to complete discharge: 25 - AMA Did Patient Leave Against Medical Advice: No
[2020-05-04] MEDS: amLODIPine BESYLATE 10 MG TABLET (FP) PO SCH (09:16)
[2020-05-04] MEDS: HYDROCHLOROTHIAZIDE 25 MG TABLET (FP) PO SCH (09:16)
[2020-05-04] MEDS: PRENATAL VITAMINS W/ FOLIC ACID TABLET (FP) PO SCH (09:17)
[2020-05-04 09:20] VITALS: BP 142/70; PULSE 72
[2020-05-04] MEDS: TOLNAFTATE 1% CREAM 15 GM TUBE TP SCH (09:23)
== END 2020-05-04 09:55 | disposition home or self-care (01) | DRG 772 ==
LOC: YASAS 11:59 → Y5N 12:00
PROVIDERS: ADMIT Allergy & Immunology; ATTEND Allergy & Immunology
PROC: HZ42ZZZ Group Counseling for Substance Abuse Treatment, Cognitive-Behavioral (ICD-10-PCS; principal; 2020-04-26)
DX: F10.20 Alcohol dependence, uncomplicated (principal); I10 Essential (primary) hypertension; J45.20 Mild intermittent asthma, uncomplicated; B35.3 Tinea pedis; E66.01 Morbid (severe) obesity due to excess calories; Z68.41 Body mass index [BMI] 40.0-44.9, adult

== ENCOUNTER 2022-04-24 10:22 | Inpatient (IN) | payer OTHER ==
[2022-04-24 10:57] VITALS: BMI 41.5
[2022-04-24] MEDS ORDERED: chlordiazePOXIDE HCL 25 MG CAPSULE PO PRN (11:07)
[2022-04-24] MEDS ORDERED: ONDANSETRON *ODT* 4 MG TABLET SL PRN (11:07)
[2022-04-24] MEDS ORDERED: MAG HYDROX/AL HYDROX/SIMETH 30 ML UNIT-DOSE CUP PO PRN (11:07)
[2022-04-24] MEDS ORDERED: LOPERAMIDE HCL 2 MG CAPSULE PO PRN (11:07)
[2022-04-24] MEDS ORDERED: DICYCLOMINE HCL 10 MG CAPSULE PO PRN (11:07)
[2022-04-24] MEDS ORDERED: MAGNESIUM HYDROX 2400MG/30ML ORAL SUSPENSION 30 ML CUP PO PRN (11:07)
[2022-04-24] MEDS ORDERED: IBUPROFEN 400 MG TABLET (FP) PO PRN (11:07)
[2022-04-24] MEDS ORDERED: BENZOCAINE/MENTHOL (CHLORASEPTIC ) LOZENGE MM PRN (11:07)
[2022-04-24] MEDS ORDERED: IBUPROFEN 600 MG TABLET (FP) PO PRN (11:07)
[2022-04-24] MEDS ORDERED: BISMUTH SUBSALICYLATE 524 MG/30 ML PO PRN (11:07)
[2022-04-24] MEDS ORDERED: ACETAMINOPHEN 325 MG TABLET (FP) PO PRN ×2 (11:07)
[2022-04-24] MEDS ORDERED: MAGNESIUM CITRATE 300 ML BOTTLE PO PRN (11:07)
[2022-04-24] MEDS: PRENATAL VITAMINS W/ FOLIC ACID TABLET (FP) PO SCH (11:58)
[2022-04-24] MEDS: hydrOXYzine PAMOATE 25 MG CAPSULE (FP) PO SCH ×3 (13:47→22:38)
[2022-04-24 15:33] LABS: HEMATOCRIT 37.4 % (35.4-49); HEMOGLOBIN 13.3 GM/dL (11.7-16.9); MCH 34.3 pg (25.7-33.7); MCHC 35.6 g/dl (32.0-35.9); MEAN CELL VOLUME 96.4 fl (80-96); MEAN PLT VOLUME 8.7 fl (7.5-11.1); PLATELET COUNT 237 10^3/uL (134-434); RBC 3.88 M/mm3 (4.00-5.60); RDW 14.5 % (11.9-15.9); WHITE BLOOD COUNT 4.3 K/mm3 (4.0-10.0)
[2022-04-24 15:41] LABS: CALCIUM 8.4 mg/dL (8.5-10.1)
[2022-04-24 15:42] LABS: ALBUMIN 3.4 g/dl (3.4-5.0); BLOOD UREA NITROGEN 14.2 mg/dL (7-18)
[2022-04-24 15:47] LABS: BILIRUBIN,TOTAL 0.4 mg/dL (0.2-1); TOT PROT 6.8 g/dl (6.4-8.2)
[2022-04-24] MEDS: chlordiazePOXIDE HCL 25 MG CAPSULE PO SCH ×2 (17:49→22:38)
[2022-04-24] MEDS: THIAMINE HCL 100 MG TABLET (FP) PO SCH (22:38)
[2022-04-24] MEDS: MELATONIN 5 MG TABLETS PO SCH (22:40)
[2022-04-25] MEDS: chlordiazePOXIDE HCL 25 MG CAPSULE PO SCH ×4 (05:30→22:52)
[2022-04-25] MEDS: hydrOXYzine PAMOATE 25 MG CAPSULE (FP) PO SCH ×5 (05:30→22:52)
[2022-04-25] MEDS: PRENATAL VITAMINS W/ FOLIC ACID TABLET (FP) PO SCH (11:03)
[2022-04-25] MEDS: MELATONIN 5 MG TABLETS PO SCH (22:52)
[2022-04-25] MEDS: THIAMINE HCL 100 MG TABLET (FP) PO SCH (22:53)
[2022-04-26] MEDS: hydrOXYzine PAMOATE 25 MG CAPSULE (FP) PO SCH ×5 (05:24→22:15)
[2022-04-26] MEDS: chlordiazePOXIDE HCL 25 MG CAPSULE PO SCH ×4 (05:24→22:14)
[2022-04-26] MEDS: METHOCARBAMOL 500 MG TABLET PO PRN (11:26)
[2022-04-26] MEDS: PRENATAL VITAMINS W/ FOLIC ACID TABLET (FP) PO SCH (11:26)
[2022-04-26] MEDS ORDERED: ALBUTEROL SO4 HFA INHALER IH PRN (11:59)
[2022-04-26] MEDS: amLODIPine BESYLATE 10 MG TABLET (FP) PO SCH (12:25)
[2022-04-26] MEDS: HYDROCHLOROTHIAZIDE 25 MG TABLET (FP) PO SCH (12:25)
[2022-04-26] MEDS ORDERED: cloNIDine HCL 0.1 MG TABLET PO ONE (12:30)
[2022-04-26] MEDS: THIAMINE HCL 100 MG TABLET (FP) PO SCH (22:14)
[2022-04-26] MEDS: MELATONIN 5 MG TABLETS PO SCH (22:14)
[2022-04-27] MEDS ORDERED: chlordiazePOXIDE HCL 10 MG CAPSULE PO PRN
[2022-04-27] MEDS: hydrOXYzine PAMOATE 25 MG CAPSULE (FP) PO SCH ×5 (05:06→22:24)
[2022-04-27] MEDS: chlordiazePOXIDE HCL 10 MG CAPSULE PO SCH ×4 (05:07→22:24)
[2022-04-27] MEDS: PRENATAL VITAMINS W/ FOLIC ACID TABLET (FP) PO SCH (10:21)
[2022-04-27] MEDS: HYDROCHLOROTHIAZIDE 25 MG TABLET (FP) PO SCH (10:21)
[2022-04-27] MEDS: amLODIPine BESYLATE 10 MG TABLET (FP) PO SCH (10:21)
[2022-04-27] MEDS: METHOCARBAMOL 500 MG TABLET PO PRN (10:21)
[2022-04-27] MEDS: THIAMINE HCL 100 MG TABLET (FP) PO SCH (22:24)
[2022-04-27] MEDS: MELATONIN 5 MG TABLETS PO SCH (22:24)
[2022-04-28] MEDS: chlordiazePOXIDE HCL 10 MG CAPSULE PO SCH ×2 (05:12→17:55)
[2022-04-28] MEDS: hydrOXYzine PAMOATE 25 MG CAPSULE (FP) PO SCH ×5 (05:12→22:15)
[2022-04-28] MEDS: HYDROCHLOROTHIAZIDE 25 MG TABLET (FP) PO SCH (10:07)
[2022-04-28] MEDS: PRENATAL VITAMINS W/ FOLIC ACID TABLET (FP) PO SCH (10:07)
[2022-04-28] MEDS: amLODIPine BESYLATE 10 MG TABLET (FP) PO SCH (10:07)
[2022-04-28] MEDS: THIAMINE HCL 100 MG TABLET (FP) PO SCH (22:15)
[2022-04-28] MEDS: METHOCARBAMOL 500 MG TABLET PO PRN (22:15)
[2022-04-28] MEDS: MELATONIN 5 MG TABLETS PO SCH (22:15)
[2022-04-29] MEDS ORDERED: chlordiazePOXIDE HCL 10 MG CAPSULE PO ONE (05:00)
[2022-04-29] MEDS: hydrOXYzine PAMOATE 25 MG CAPSULE (FP) PO SCH ×2 (05:25→10:11)
[2022-04-29] MEDS: HYDROCHLOROTHIAZIDE 25 MG TABLET (FP) PO SCH (10:11)
[2022-04-29] MEDS: PRENATAL VITAMINS W/ FOLIC ACID TABLET (FP) PO SCH (10:11)
[2022-04-29] MEDS: amLODIPine BESYLATE 10 MG TABLET (FP) PO SCH (10:11)
[2022-04-29 12:47] VITALS: BP 147/68; PULSE 83; RESP 17; TEMP 97.4
== END 2022-04-29 13:42 | disposition other institution (70) | DRG 775 ==
LOC: YASAS 10:22 → Y6N 11:21
PROVIDERS: ADMIT Allergy & Immunology; ATTEND Surgery
PROC: HZ2ZZZZ Detoxification Services for Substance Abuse Treatment (ICD-10-PCS; principal; 2022-04-24)
DX: F10.230 Alcohol dependence with withdrawal, uncomplicated (principal); I10 Essential (primary) hypertension; J45.20 Mild intermittent asthma, uncomplicated; E66.01 Morbid (severe) obesity due to excess calories; Z68.41 Body mass index [BMI] 40.0-44.9, adult
CPT/HCPCS: 36415; 80053; 82310; 82947; 83036; 85027; 86780; 87811; 93005; 93010; C9803-CS; U0003; U0005

== ENCOUNTER 2022-04-29 14:00 | Inpatient (IN) | payer OTHER ==
[2022-04-29] MEDS ORDERED: BENZOCAINE/MENTHOL (CHLORASEPTIC ) LOZENGE MM PRN (14:56)
[2022-04-29] MEDS ORDERED: MAGNESIUM CITRATE 300 ML BOTTLE PO PRN (14:56)
[2022-04-29] MEDS ORDERED: P-EPHED 60MG/TRIPROLIDI 2.5MG TABLET PO PRN (14:56)
[2022-04-29] MEDS ORDERED: MAGNESIUM HYDROX 2400MG/30ML ORAL SUSPENSION 30 ML CUP PO PRN (14:56)
[2022-04-29] MEDS ORDERED: IBUPROFEN 400 MG TABLET (FP) PO PRN (14:56)
[2022-04-29] MEDS ORDERED: ACETAMINOPHEN 325 MG TABLET (FP) PO PRN (14:56)
[2022-04-29] MEDS ORDERED: LOPERAMIDE HCL 2 MG CAPSULE PO PRN (14:56)
[2022-04-29] MEDS ORDERED: MAG HYDROX/AL HYDROX/SIMETH 30 ML UNIT-DOSE CUP PO PRN (14:56)
[2022-04-29] MEDS ORDERED: NICOTINE 10 MG CARTRIDGE (INHALER) IH PRN (14:56)
[2022-04-29] MEDS ORDERED: guaiFENesin 200 MG/10 ML 10 ML UNIT-DOSE CUPS PO PRN (14:56)
[2022-04-29] MEDS: hydrOXYzine PAMOATE 25 MG CAPSULE (FP) PO SCH ×2 (17:55→21:06)
[2022-04-29] MEDS: THIAMINE HCL 100 MG TABLET (FP) PO SCH (21:06)
[2022-04-29] MEDS: MELATONIN 5 MG TABLETS PO SCH (21:06)
[2022-04-29 22:46] VITALS: RESP 18
[2022-04-30] MEDS: hydrOXYzine PAMOATE 25 MG CAPSULE (FP) PO SCH ×2 (06:43→09:35)
[2022-04-30] MEDS: amLODIPine BESYLATE 10 MG TABLET (FP) PO SCH (09:35)
[2022-04-30] MEDS: PRENATAL VITAMINS W/ FOLIC ACID TABLET (FP) PO SCH (09:35)
[2022-04-30] MEDS: HYDROCHLOROTHIAZIDE 25 MG TABLET (FP) PO SCH (09:35)
[2022-04-30 15:18] LABS: HIV INTERPRETATION NEGATIVE (NEGATIVE)
[2022-04-30] MEDS: MELATONIN 5 MG TABLETS PO SCH (21:04)
[2022-04-30] MEDS: THIAMINE HCL 100 MG TABLET (FP) PO SCH (21:04)
[2022-05-01] MEDS: HYDROCHLOROTHIAZIDE 25 MG TABLET (FP) PO SCH (09:35)
[2022-05-01] MEDS: amLODIPine BESYLATE 10 MG TABLET (FP) PO SCH (09:35)
[2022-05-01] MEDS: PRENATAL VITAMINS W/ FOLIC ACID TABLET (FP) PO SCH (09:35)
[2022-05-01] MEDS: ALBUTEROL SO4 HFA INHALER IH PRN (09:36)
[2022-05-01] MEDS ORDERED: PNEUMOC 20-VAL CONJ-DIP CRM/PF 0.5 ML SYRINGE IM ONE (12:00)
[2022-05-01] MEDS: hydrOXYzine PAMOATE 25 MG CAPSULE (FP) PO PRN (20:58)
[2022-05-01] MEDS: THIAMINE HCL 100 MG TABLET (FP) PO SCH (21:01)
[2022-05-01] MEDS: MELATONIN 5 MG TABLETS PO SCH (21:01)
[2022-05-02] MEDS: PRENATAL VITAMINS W/ FOLIC ACID TABLET (FP) PO SCH (09:38)
[2022-05-02] MEDS: amLODIPine BESYLATE 10 MG TABLET (FP) PO SCH (09:39)
[2022-05-02] MEDS: ALBUTEROL SO4 HFA INHALER IH PRN (09:39)
[2022-05-02] MEDS: HYDROCHLOROTHIAZIDE 25 MG TABLET (FP) PO SCH (09:39)
[2022-05-02] MEDS: THIAMINE HCL 100 MG TABLET (FP) PO SCH (21:08)
[2022-05-02] MEDS: MELATONIN 5 MG TABLETS PO SCH (21:08)
[2022-05-02] MEDS: hydrOXYzine PAMOATE 25 MG CAPSULE (FP) PO PRN (21:09)
[2022-05-03] MEDS: HYDROCHLOROTHIAZIDE 25 MG TABLET (FP) PO SCH (09:39)
[2022-05-03] MEDS: PRENATAL VITAMINS W/ FOLIC ACID TABLET (FP) PO SCH (09:39)
[2022-05-03] MEDS: amLODIPine BESYLATE 10 MG TABLET (FP) PO SCH (09:39)
[2022-05-03] MEDS: THIAMINE HCL 100 MG TABLET (FP) PO SCH (21:08)
[2022-05-03] MEDS: MELATONIN 5 MG TABLETS PO SCH (21:08)
[2022-05-03] MEDS: hydrOXYzine PAMOATE 25 MG CAPSULE (FP) PO PRN (21:08)
[2022-05-04] MEDS: amLODIPine BESYLATE 10 MG TABLET (FP) PO SCH (09:45)
[2022-05-04] MEDS: hydrOXYzine PAMOATE 25 MG CAPSULE (FP) PO PRN ×2 (09:45→21:04)
[2022-05-04] MEDS: PRENATAL VITAMINS W/ FOLIC ACID TABLET (FP) PO SCH (09:45)
[2022-05-04] MEDS: HYDROCHLOROTHIAZIDE 25 MG TABLET (FP) PO SCH (09:45)
[2022-05-04] MEDS: THIAMINE HCL 100 MG TABLET (FP) PO SCH (21:04)
[2022-05-04] MEDS: MELATONIN 5 MG TABLETS PO SCH (21:04)
[2022-05-05] MEDS: HYDROCHLOROTHIAZIDE 25 MG TABLET (FP) PO SCH (09:40)
[2022-05-05] MEDS: amLODIPine BESYLATE 10 MG TABLET (FP) PO SCH (09:40)
[2022-05-05] MEDS: PRENATAL VITAMINS W/ FOLIC ACID TABLET (FP) PO SCH (09:41)
[2022-05-05] MEDS: hydrOXYzine PAMOATE 25 MG CAPSULE (FP) PO PRN (21:08)
[2022-05-05] MEDS: MELATONIN 5 MG TABLETS PO SCH (21:08)
[2022-05-05] MEDS: THIAMINE HCL 100 MG TABLET (FP) PO SCH (21:08)
[2022-05-06] MEDS: PRENATAL VITAMINS W/ FOLIC ACID TABLET (FP) PO SCH (10:05)
[2022-05-06] MEDS: amLODIPine BESYLATE 10 MG TABLET (FP) PO SCH (10:06)
[2022-05-06] MEDS: HYDROCHLOROTHIAZIDE 25 MG TABLET (FP) PO SCH (10:06)
[2022-05-06] MEDS: MELATONIN 5 MG TABLETS PO SCH (21:08)
[2022-05-06] MEDS: hydrOXYzine PAMOATE 25 MG CAPSULE (FP) PO PRN (21:08)
[2022-05-06] MEDS: THIAMINE HCL 100 MG TABLET (FP) PO SCH (21:08)
[2022-05-07 07:01] VITALS: TEMP 96
[2022-05-07 10:54] VITALS: BP 136/69; PULSE 77
== END 2022-05-07 08:50 | disposition home or self-care (01) | DRG 772 ==
LOC: YASAS 14:00 → Y5N 14:02
PROVIDERS: ADMIT Allergy & Immunology; ATTEND Psychiatry & Neurology Pain Medicine
PROC: HZ42ZZZ Group Counseling for Substance Abuse Treatment, Cognitive-Behavioral (ICD-10-PCS; principal; 2022-04-29)
DX: F10.20 Alcohol dependence, uncomplicated (principal); I10 Essential (primary) hypertension; J45.20 Mild intermittent asthma, uncomplicated; E66.01 Morbid (severe) obesity due to excess calories; Z68.41 Body mass index [BMI] 40.0-44.9, adult
CPT/HCPCS: 36415; 87389; 90677

== ENCOUNTER 2022-10-25 10:02 | Inpatient (IN) | payer OTHER ==
[2022-10-25 11:12] VITALS: BMI 40.7
[2022-10-25] MEDS ORDERED: ACETAMINOPHEN 325 MG TABLET (FP) PO PRN ×2 (12:03)
[2022-10-25] MEDS ORDERED: DICYCLOMINE HCL 10 MG CAPSULE PO PRN (12:03)
[2022-10-25] MEDS ORDERED: POLYETHYLENE GLYCOL (HEALTHYLAX) 3350 17 GM PACKET PO PRN (12:03)
[2022-10-25] MEDS ORDERED: LOPERAMIDE HCL 2 MG CAPSULE PO PRN (12:03)
[2022-10-25] MEDS ORDERED: IBUPROFEN 600 MG TABLET (FP) PO PRN (12:03)
[2022-10-25] MEDS ORDERED: ONDANSETRON *ODT* 4 MG TABLET SL PRN (12:03)
[2022-10-25] MEDS ORDERED: BISMUTH SUBSALICYLATE 524 MG/30 ML PO PRN (12:03)
[2022-10-25] MEDS ORDERED: chlordiazePOXIDE HCL 25 MG CAPSULE PO PRN (12:03)
[2022-10-25] MEDS ORDERED: BENZOCAINE/MENTHOL (CHLORASEPTIC ) LOZENGE MM PRN (12:03)
[2022-10-25] MEDS ORDERED: IBUPROFEN 400 MG TABLET (FP) PO PRN (12:03)
[2022-10-25] MEDS ORDERED: MAGNESIUM HYDROX 2400MG/30ML ORAL SUSPENSION 30 ML CUP PO PRN (12:03)
[2022-10-25] MEDS ORDERED: MAG HYDROX/AL HYDROX/SIMETH 30 ML UNIT-DOSE CUP PO PRN (12:03)
[2022-10-25] MEDS ORDERED: ALBUTEROL SO4 HFA INHALER IH PRN (15:54)
[2022-10-25] MEDS ORDERED: FUROSEMIDE 40 MG TABLET (FP) PO ONE (15:55)
[2022-10-25] MEDS: HYDROCHLOROTHIAZIDE 25 MG TABLET (FP) PO SCH (16:08)
[2022-10-25] MEDS: amLODIPine BESYLATE 10 MG TABLET (FP) PO SCH (16:08)
[2022-10-25] MEDS: chlordiazePOXIDE HCL 25 MG CAPSULE PO SCH ×2 (17:36→22:22)
[2022-10-25] MEDS: THIAMINE HCL 100 MG TABLET (FP) PO SCH (22:22)
[2022-10-25] MEDS: MELATONIN 5 MG TABLETS PO SCH (22:24)
[2022-10-26] MEDS: chlordiazePOXIDE HCL 25 MG CAPSULE PO SCH ×4 (05:30→22:44)
[2022-10-26] MEDS: PRENATAL VITAMINS W/ FOLIC ACID TABLET (FP) PO SCH (10:21)
[2022-10-26] MEDS: hydrOXYzine PAMOATE 25 MG CAPSULE (FP) PO PRN (10:21)
[2022-10-26] MEDS: amLODIPine BESYLATE 10 MG TABLET (FP) PO SCH (10:21)
[2022-10-26] MEDS: METHOCARBAMOL 500 MG TABLET PO PRN (10:21)
[2022-10-26] MEDS: HYDROCHLOROTHIAZIDE 25 MG TABLET (FP) PO SCH (10:21)
[2022-10-26 11:27] LABS: HEMATOCRIT 41.8 % (35.4-49); HEMOGLOBIN 14.4 GM/dL (11.7-16.9); MCH 33.5 pg (25.7-33.7); MCHC 34.6 g/dl (32.0-35.9); MEAN CELL VOLUME 96.8 fl (80-96); PLATELET COUNT 269 10^3/uL (134-434); RBC 4.32 M/mm3 (4.00-5.60); RDW 14.1 % (11.9-15.9); WHITE BLOOD COUNT 4.6 K/mm3 (4.0-10.0)
[2022-10-26 12:24] LABS: CALCIUM 8.5 mg/dL (8.5-10.1)
[2022-10-26 12:25] LABS: ALBUMIN 3.6 g/dl (3.4-5.0); BLOOD UREA NITROGEN 13.4 mg/dL (7-18)
[2022-10-26 12:29] LABS: BILIRUBIN,TOTAL 0.9 mg/dL (0.2-1); TOT PROT 7.1 g/dl (6.4-8.2)
[2022-10-26] MEDS: MELATONIN 5 MG TABLETS PO SCH (22:44)
[2022-10-26] MEDS: THIAMINE HCL 100 MG TABLET (FP) PO SCH (22:44)
[2022-10-27] MEDS: chlordiazePOXIDE HCL 25 MG CAPSULE PO SCH ×4 (05:41→22:39)
[2022-10-27] MEDS: METHOCARBAMOL 500 MG TABLET PO PRN (10:32)
[2022-10-27] MEDS: HYDROCHLOROTHIAZIDE 25 MG TABLET (FP) PO SCH (10:32)
[2022-10-27] MEDS: PRENATAL VITAMINS W/ FOLIC ACID TABLET (FP) PO SCH (10:32)
[2022-10-27] MEDS: amLODIPine BESYLATE 10 MG TABLET (FP) PO SCH (10:32)
[2022-10-27] MEDS: THIAMINE HCL 100 MG TABLET (FP) PO SCH (22:39)
[2022-10-27] MEDS: MELATONIN 5 MG TABLETS PO SCH (22:40)
[2022-10-28] MEDS ORDERED: chlordiazePOXIDE HCL 10 MG CAPSULE PO PRN
[2022-10-28] MEDS: chlordiazePOXIDE HCL 10 MG CAPSULE PO SCH ×4 (05:27→22:28)
[2022-10-28] MEDS: HYDROCHLOROTHIAZIDE 25 MG TABLET (FP) PO SCH (10:47)
[2022-10-28] MEDS: PRENATAL VITAMINS W/ FOLIC ACID TABLET (FP) PO SCH (10:47)
[2022-10-28] MEDS: amLODIPine BESYLATE 10 MG TABLET (FP) PO SCH (10:47)
[2022-10-28] MEDS: METHOCARBAMOL 500 MG TABLET PO PRN (10:47)
[2022-10-28] MEDS ORDERED: cloNIDine HCL 0.1 MG TABLET PO PRN (12:21)
[2022-10-28] MEDS: THIAMINE HCL 100 MG TABLET (FP) PO SCH (22:28)
[2022-10-28] MEDS: MELATONIN 5 MG TABLETS PO SCH (22:30)
[2022-10-29] MEDS: chlordiazePOXIDE HCL 10 MG CAPSULE PO SCH ×2 (05:31→17:37)
[2022-10-29] MEDS: METHOCARBAMOL 500 MG TABLET PO PRN (09:39)
[2022-10-29] MEDS: HYDROCHLOROTHIAZIDE 25 MG TABLET (FP) PO SCH (09:39)
[2022-10-29] MEDS: amLODIPine BESYLATE 10 MG TABLET (FP) PO SCH (09:39)
[2022-10-29] MEDS: hydrOXYzine PAMOATE 25 MG CAPSULE (FP) PO PRN (09:39)
[2022-10-29] MEDS: PRENATAL VITAMINS W/ FOLIC ACID TABLET (FP) PO SCH (09:39)
[2022-10-29] MEDS: THIAMINE HCL 100 MG TABLET (FP) PO SCH (22:35)
[2022-10-29] MEDS: MELATONIN 5 MG TABLETS PO SCH (22:36)
[2022-10-30] MEDS ORDERED: chlordiazePOXIDE HCL 10 MG CAPSULE PO ONE (05:00)
[2022-10-30 09:41] VITALS: BP 147/64; PULSE 84; RESP 18; TEMP 96.8
[2022-10-30] MEDS: PRENATAL VITAMINS W/ FOLIC ACID TABLET (FP) PO SCH (09:54)
[2022-10-30] MEDS: HYDROCHLOROTHIAZIDE 25 MG TABLET (FP) PO SCH (09:54)
[2022-10-30] MEDS: amLODIPine BESYLATE 10 MG TABLET (FP) PO SCH (09:54)
== END 2022-10-30 12:40 | disposition other institution (70) | DRG 775 ==
LOC: YASAS 10:02 → Y6N 12:11
PROVIDERS: ADMIT Allergy & Immunology; ATTEND Surgery
PROC: HZ2ZZZZ Detoxification Services for Substance Abuse Treatment (ICD-10-PCS; principal; 2022-10-25)
DX: F10.230 Alcohol dependence with withdrawal, uncomplicated (principal); F10.282 Alcohol dependence with alcohol-induced sleep disorder; F41.9 Anxiety disorder, unspecified; I10 Essential (primary) hypertension; J45.20 Mild intermittent asthma, uncomplicated; E66.01 Morbid (severe) obesity due to excess calories; Z68.41 Body mass index [BMI] 40.0-44.9, adult
CPT/HCPCS: 36415; 80053; 85027; 86780; 86803; 87811; C9803-CS; U0003; U0005

== ENCOUNTER 2022-10-30 12:46 | Inpatient (IN) | payer OTHER ==
[2022-10-30] MEDS ORDERED: hydrOXYzine PAMOATE 25 MG CAPSULE (FP) PO PRN (15:38)
[2022-10-30] MEDS ORDERED: MAG HYDROX/AL HYDROX/SIMETH 30 ML UNIT-DOSE CUP PO PRN (15:38)
[2022-10-30] MEDS ORDERED: BENZOCAINE/MENTHOL (CHLORASEPTIC ) LOZENGE MM PRN (15:38)
[2022-10-30] MEDS ORDERED: LOPERAMIDE HCL 2 MG CAPSULE PO PRN (15:38)
[2022-10-30] MEDS ORDERED: NICOTINE 10 MG CARTRIDGE (INHALER) IH PRN (15:38)
[2022-10-30] MEDS ORDERED: P-EPHED 60MG/TRIPROLIDI 2.5MG TABLET PO PRN (15:38)
[2022-10-30] MEDS ORDERED: POLYETHYLENE GLYCOL (HEALTHYLAX) 3350 17 GM PACKET PO PRN (15:38)
[2022-10-30] MEDS ORDERED: IBUPROFEN 400 MG TABLET (FP) PO PRN (15:38)
[2022-10-30] MEDS ORDERED: MAGNESIUM HYDROX 2400MG/30ML ORAL SUSPENSION 30 ML CUP PO PRN (15:38)
[2022-10-30] MEDS ORDERED: guaiFENesin 200 MG/10 ML 10 ML UNIT-DOSE CUPS PO PRN (15:38)
[2022-10-30] MEDS ORDERED: ACETAMINOPHEN 325 MG TABLET (FP) PO PRN (15:38)
[2022-10-30] MEDS: THIAMINE HCL 100 MG TABLET (FP) PO SCH (21:17)
[2022-10-30] MEDS: MELATONIN 5 MG TABLETS PO SCH (21:17)
[2022-10-31] MEDS: PRENATAL VITAMINS W/ FOLIC ACID TABLET (FP) PO SCH (09:33)
[2022-10-31] MEDS: HYDROCHLOROTHIAZIDE 25 MG TABLET (FP) PO SCH (09:33)
[2022-10-31] MEDS: NICOTINE 7 MG/24 HOURS TOPICAL PATCH TD SCH (09:33)
[2022-10-31] MEDS: amLODIPine BESYLATE 10 MG TABLET (FP) PO SCH (09:33)
[2022-10-31] MEDS: ALBUTEROL SO4 HFA INHALER IH PRN (09:36)
[2022-10-31] MEDS: THIAMINE HCL 100 MG TABLET (FP) PO SCH (21:56)
[2022-10-31] MEDS: MELATONIN 5 MG TABLETS PO SCH (21:57)
[2022-11-01] MEDS: PRENATAL VITAMINS W/ FOLIC ACID TABLET (FP) PO SCH (10:04)
[2022-11-01] MEDS: amLODIPine BESYLATE 10 MG TABLET (FP) PO SCH (10:05)
[2022-11-01] MEDS: HYDROCHLOROTHIAZIDE 25 MG TABLET (FP) PO SCH (10:05)
[2022-11-01] MEDS: NICOTINE 7 MG/24 HOURS TOPICAL PATCH TD SCH (10:05)
[2022-11-01] MEDS: MELATONIN 5 MG TABLETS PO SCH (21:29)
[2022-11-01] MEDS: THIAMINE HCL 100 MG TABLET (FP) PO SCH (21:29)
[2022-11-02] MEDS: PRENATAL VITAMINS W/ FOLIC ACID TABLET (FP) PO SCH (09:58)
[2022-11-02] MEDS: HYDROCHLOROTHIAZIDE 25 MG TABLET (FP) PO SCH (09:58)
[2022-11-02] MEDS: NICOTINE 7 MG/24 HOURS TOPICAL PATCH TD SCH (09:58)
[2022-11-02] MEDS: amLODIPine BESYLATE 10 MG TABLET (FP) PO SCH (09:58)
[2022-11-02] MEDS: THIAMINE HCL 100 MG TABLET (FP) PO SCH (21:28)
[2022-11-02] MEDS: MELATONIN 5 MG TABLETS PO SCH (21:29)
[2022-11-03] MEDS: NICOTINE 7 MG/24 HOURS TOPICAL PATCH TD SCH (09:56)
[2022-11-03] MEDS: amLODIPine BESYLATE 10 MG TABLET (FP) PO SCH (09:56)
[2022-11-03] MEDS: PRENATAL VITAMINS W/ FOLIC ACID TABLET (FP) PO SCH (09:56)
[2022-11-03] MEDS: HYDROCHLOROTHIAZIDE 25 MG TABLET (FP) PO SCH (09:56)
[2022-11-03] MEDS: ALBUTEROL SO4 HFA INHALER IH PRN (09:57)
[2022-11-03] MEDS: THIAMINE HCL 100 MG TABLET (FP) PO SCH (21:26)
[2022-11-03] MEDS: MELATONIN 5 MG TABLETS PO SCH (21:26)
[2022-11-04] MEDS: NICOTINE 7 MG/24 HOURS TOPICAL PATCH TD SCH (09:56)
[2022-11-04] MEDS: amLODIPine BESYLATE 10 MG TABLET (FP) PO SCH (09:56)
[2022-11-04] MEDS: HYDROCHLOROTHIAZIDE 25 MG TABLET (FP) PO SCH (09:56)
[2022-11-04] MEDS: PRENATAL VITAMINS W/ FOLIC ACID TABLET (FP) PO SCH (09:56)
[2022-11-04] MEDS: MELATONIN 5 MG TABLETS PO SCH (21:31)
[2022-11-04] MEDS: THIAMINE HCL 100 MG TABLET (FP) PO SCH (21:31)
[2022-11-05] MEDS: NICOTINE 7 MG/24 HOURS TOPICAL PATCH TD SCH (09:54)
[2022-11-05] MEDS: PRENATAL VITAMINS W/ FOLIC ACID TABLET (FP) PO SCH (09:54)
[2022-11-05] MEDS: ALBUTEROL SO4 HFA INHALER IH PRN (09:54)
[2022-11-05] MEDS: amLODIPine BESYLATE 10 MG TABLET (FP) PO SCH (09:55)
[2022-11-05] MEDS: HYDROCHLOROTHIAZIDE 25 MG TABLET (FP) PO SCH (09:55)
[2022-11-05] MEDS: MELATONIN 5 MG TABLETS PO SCH (21:22)
[2022-11-05] MEDS: THIAMINE HCL 100 MG TABLET (FP) PO SCH (21:52)
[2022-11-06] MEDS: HYDROCHLOROTHIAZIDE 25 MG TABLET (FP) PO SCH (09:50)
[2022-11-06] MEDS: amLODIPine BESYLATE 10 MG TABLET (FP) PO SCH (09:50)
[2022-11-06] MEDS: PRENATAL VITAMINS W/ FOLIC ACID TABLET (FP) PO SCH (09:50)
[2022-11-06] MEDS: NICOTINE 7 MG/24 HOURS TOPICAL PATCH TD SCH (09:50)
[2022-11-06] MEDS: THIAMINE HCL 100 MG TABLET (FP) PO SCH (21:48)
[2022-11-06] MEDS: MELATONIN 5 MG TABLETS PO SCH (21:49)
[2022-11-07] MEDS: amLODIPine BESYLATE 10 MG TABLET (FP) PO SCH (09:58)
[2022-11-07] MEDS: PRENATAL VITAMINS W/ FOLIC ACID TABLET (FP) PO SCH (09:58)
[2022-11-07] MEDS: NICOTINE 7 MG/24 HOURS TOPICAL PATCH TD SCH (09:58)
[2022-11-07] MEDS: HYDROCHLOROTHIAZIDE 25 MG TABLET (FP) PO SCH (09:58)
[2022-11-07] MEDS: ALBUTEROL SO4 HFA INHALER IH PRN (09:59)
[2022-11-07] MEDS: THIAMINE HCL 100 MG TABLET (FP) PO SCH (21:29)
[2022-11-07] MEDS: MELATONIN 5 MG TABLETS PO SCH (21:30)
[2022-11-08] MEDS: HYDROCHLOROTHIAZIDE 25 MG TABLET (FP) PO SCH (10:00)
[2022-11-08] MEDS: NICOTINE 7 MG/24 HOURS TOPICAL PATCH TD SCH (10:00)
[2022-11-08] MEDS: amLODIPine BESYLATE 10 MG TABLET (FP) PO SCH (10:00)
[2022-11-08] MEDS: PRENATAL VITAMINS W/ FOLIC ACID TABLET (FP) PO SCH (10:00)
[2022-11-08] MEDS: THIAMINE HCL 100 MG TABLET (FP) PO SCH (21:24)
[2022-11-08] MEDS: MELATONIN 5 MG TABLETS PO SCH (21:25)
[2022-11-09] MEDS: NICOTINE 7 MG/24 HOURS TOPICAL PATCH TD SCH (09:58)
[2022-11-09] MEDS: HYDROCHLOROTHIAZIDE 25 MG TABLET (FP) PO SCH (09:58)
[2022-11-09] MEDS: amLODIPine BESYLATE 10 MG TABLET (FP) PO SCH (09:58)
[2022-11-09] MEDS: PRENATAL VITAMINS W/ FOLIC ACID TABLET (FP) PO SCH (09:58)
[2022-11-09] MEDS: THIAMINE HCL 100 MG TABLET (FP) PO SCH (21:21)
[2022-11-09] MEDS: MELATONIN 5 MG TABLETS PO SCH (21:21)
[2022-11-10] MEDS: PRENATAL VITAMINS W/ FOLIC ACID TABLET (FP) PO SCH (10:11)
[2022-11-10] MEDS: NICOTINE 7 MG/24 HOURS TOPICAL PATCH TD SCH (10:12)
[2022-11-10] MEDS: HYDROCHLOROTHIAZIDE 25 MG TABLET (FP) PO SCH (10:12)
[2022-11-10] MEDS: amLODIPine BESYLATE 10 MG TABLET (FP) PO SCH (10:12)
[2022-11-10 13:21] VITALS: RESP 18
[2022-11-10] MEDS: MELATONIN 5 MG TABLETS PO SCH (21:58)
[2022-11-10] MEDS: THIAMINE HCL 100 MG TABLET (FP) PO SCH (21:58)
[2022-11-11] MEDS: PRENATAL VITAMINS W/ FOLIC ACID TABLET (FP) PO SCH (10:01)
[2022-11-11] MEDS: HYDROCHLOROTHIAZIDE 25 MG TABLET (FP) PO SCH (10:02)
[2022-11-11] MEDS: amLODIPine BESYLATE 10 MG TABLET (FP) PO SCH (10:03)
[2022-11-11] MEDS: THIAMINE HCL 100 MG TABLET (FP) PO SCH (21:33)
[2022-11-11] MEDS: MELATONIN 5 MG TABLETS PO SCH (21:33)
[2022-11-12 07:53] VITALS: TEMP 97
[2022-11-12] MEDS: PRENATAL VITAMINS W/ FOLIC ACID TABLET (FP) PO SCH (09:37)
[2022-11-12] MEDS: amLODIPine BESYLATE 10 MG TABLET (FP) PO SCH (09:38)
[2022-11-12] MEDS: HYDROCHLOROTHIAZIDE 25 MG TABLET (FP) PO SCH (09:38)
[2022-11-12 12:13] VITALS: BP 140/74; PULSE 73
== END 2022-11-12 10:27 | disposition home or self-care (01) | DRG 772 ==
LOC: YASAS 12:46 → Y5N 12:48 → Y3W 11-02 16:06 → Y5N 11-02 16:09
PROVIDERS: ADMIT Allergy & Immunology; ATTEND Allergy & Immunology
PROC: HZ42ZZZ Group Counseling for Substance Abuse Treatment, Cognitive-Behavioral (ICD-10-PCS; principal; 2022-10-30)
DX: F10.20 Alcohol dependence, uncomplicated (principal); F41.9 Anxiety disorder, unspecified; F32.A Depression, unspecified; I10 Essential (primary) hypertension; J45.909 Unspecified asthma, uncomplicated; R60.0 Localized edema; E66.01 Morbid (severe) obesity due to excess calories; Z68.41 Body mass index [BMI] 40.0-44.9, adult